=== PATIENT | male | born 1975 | race African-American/Black ===

== ENCOUNTER 2017-09-25 09:52 | Inpatient (IN) ==
--- NOTE | 2017-09-25 10:10 | ED ---
HPI General Chief Complaint: Stroke Alert Stated Complaint: Poss Stroke Time Seen by Provider: 09/25/17 09:58 Source: family Mode of arrival: ambulatory Limitations: altered mental status History of Present Illness HPI Narrative: The patient is a 42-year-old -[place] male who presents to the emergency department via private vehicle with EMS behind the private vehicle for stroke. The patient is a somewhat limited historian, the history is obtained from the . The patient's ex- states that she was having a discussion with the patient on the phone at 9:07 AM when all of a sudden he had "garbled" speech and appear to be talking to another individual. The patient's then went over to his location and noticed that he had a change of personality, was aggressive, and was not making sense when he would talk. EMS was called, however, the patient refused to get in the back of the EMS vehicle and they followed the patient's 's car to the emergency department. The patient was brought immediately to echo pod room 54 as a stroke alert. The patient was noted to be slightly confused, slightly aggressive, with repetitive questioning. The patient's states this behavior is totally abnormal. The patient eventually would follow some commands, was able to tell me fingers at a distance of 2 feet and would move all 4 extremities, however, he was unable to repeat phrases and appear to have some expressive aphasia. The patient is a limited historian. Time: 09:07 Related Data Allergies Allergy/AdvReac Type Severity Reaction Status Date / Time No Known Allergies Allergy Unverified 09/25/17 09:57 Review of Systems ROS Unobtainable unobtainable due to mental status Except as stated in HPI: all other systems reviewed are negative [facility] Medical History Medical History Patient denies medical problems (Acute) Surgical History Surgical History No history of previous surgery (Acute) Social History Social History Recent Travel in [facility] within the Last 8 Weeks: No Recent Out of Country Travel within the Last 8 Weeks: No Exam Narrative Exam Narrative: GENERAL: Awake, alert, slightly confused 42-year-old - [place] male. SKIN: Focused skin assessment warm/dry. HEAD: Atraumatic. Normocephalic. EYES: Pupils equal and round. Pupils are 4 mm bilateral and reactive. EOMs appear to be intact but he would not follow fingers, however, he would look to the left and right. He was able to tell me fingers at a distance of 2 feet correctly. ENT: No nasal bleeding or discharge. Mucous membranes pink and moist. NECK: Trachea midline. No JVD. CARDIOVASCULAR: Regular rate and rhythm. No murmur appreciated. RESPIRATORY: No accessory muscle use. Clear to auscultation. Breath sounds equal bilaterally. GASTROINTESTINAL: Abdomen soft, non-tender, nondistended. Hepatic and splenic margins not palpable. MUSCULOSKELETAL: No obvious deformities. No clubbing. No cyanosis. No edema. NEUROLOGICAL: Awake and alert. No obvious cranial nerve deficits. EOMs appear intact. He is able to see fingers at a distance of 2 feet without difficulty. Apparent expressive and receptive aphasia. Moves all 4 extremities without difficulty. Finger to nose is normal. Heel to ricketts normal. No drift of the upper or lower extremities. Sensation appears intact on the face, arms, and legs. Unable to identify my hand, simply states 5. PSYCHIATRIC: Unable to pain. Course Initial Documented Vital Signs Temperature 98.4 F 09/25/17 10:22 Pulse Rate 93 H 09/25/17 10:22 Respiratory Rate 22 09/25/17 10:22 Blood Pressure 153/68 H 09/25/17 10:22 Pulse Oximetry 99 09/25/17 10:22 Last Documented Vital Signs Temperature 98.4 F 09/25/17 10:22 Pulse Rate 93 H 09/25/17 10:22 Respiratory Rate 22 09/25/17 10:22 Blood Pressure 153/68 H 09/25/17 10:22 Pulse Oximetry 99 09/25/17 10:22 Critical Care Time Critical Care Time: Yes Total Critical Care Time: 45 Attestation: Aggregate critical care time was 45 minutes. Time to perform other separately billable procedures was not included in the critical care time. My time did not include minutes spent treating any other patients simultaneously or on activities that did not directly contribute to the patient's treatment. The services I provided to this patient were to treat and/or prevent clinically significant deterioration that could result in: Progressive neurologic deterioration, chronic neurologic deficits, aphasia, dysarthria. I provided critical care services requiring my management, as noted below: Chart data review, documentation time, medication orders and management, vital sign assessments/reviewing monitor data, ordering and reviewing lab tests, ordering and interpreting/reviewing x-rays and diagnostic studies, care of the patient and discussion of the patient with the admitting physicians. NIH Stroke Scale NIH Stroke Scale Level of Consciousness: 0-Alert Orientation Questions: 2-Neither task correct Responds to Commands: 2-Neither task correct Gaze Eye Movement: 0-Horizontal movement WNL Visual Berman: 0-No visual field defect Facial Movement: 0-Normal Motor Functions Arm LEFT: 0-No drift Motor Functions Arm RIGHT: 0-No drift Motor Functions Leg LEFT: 0-No drift Motor Functions Leg RIGHT: 0-No drift Limb Ataxia: 0-No ataxia Sensory Loss: 0-No sensory loss Best Language: 1-Mild aphasia Articulation: 1-Mild dysarthia Extinction or Inattention Sensory: 0-Absent Total: 6 Medical Decision Making MDM Narrative Medical decision making narrative: IV was established, labs are drawn and sent, and the patient was placed on cardiac telemetry monitoring and continuous pulse oximetry monitoring. Stroke alert was called as the patient appears to have some receptive and expressive aphasia with altered mental status. I discussed the patient with a neurologist, Dr. Neff, who agrees with TPA if CT the brain is negative. The patient went immediately to CT for CT the brain and CTA of the head and neck. The patient returned from CT, I discussed the patient with the radiologist, CT the brain is negative for hemorrhage. The patient came back to room echo pod 54. The patient is unable to identify objects on a piece of paper, cannot tell me what her glove or a holden is. He does not follow verbal commands correctly, but will follow visual commands such as finger to nose. Stroke scale is 6, onset at time was 9:07 AM. The patient is unable to consent for TPA, however, the patient's current is able to consent and does consent for TPA. 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 I discussed the patient with interventional radiologist, Dr. Chirinos, who states there appears to be a clot on the CTA of the head and neck. I discussed the patient once again with the neurologist who agrees with interventional radiology intervention if deemed possible by IR. The patient went to interventional radiology at 10:47 AM. A call was placed to the on-call commanding officer motorized squad for the intensive surgical care unit for admission. I discussed the patient with Dr. Rivera who agrees with admission. Lab Data Lab results reviewed: Yes I reviewed the patient's lab results. Lab results narrative: Labs are unremarkable Result diagrams: 09/25/17 10:03 Lab Results 09/25/17 09/25/17 09/25/17 Range/Units 10:03 10:03 10:03 WBC 10.6 (4.0-11.0) th/mm3 RBC 4.30 L (4.50-5.90) mil/mm3 Hgb 14.3 (13.0-17.0) gm/dL POC Hgb (Calc) 13.6 (13.0-17.0) g/dL Hct 41.9 (39.0-51.0) % POC Hct 40.0 (39-51.0) % MCV 97.6 (80.0-100.0) fL MCH 33.2 (27.0-34.0) pg MCHC 34.0 (32.0-36.0) % RDW 12.3 (11.6-17.2) % Plt Count 274 (150-450) th/mm3 MPV 9.6 (7.0-11.0) fL Neut % (Auto) 53.7 (16.0-70.0) % Lymph % (Auto) 39.1 (9.0-44.0) % [place] % (Auto) 5.8 (0.0-8.0) % Eos % (Auto) 1.0 (0.0-4.0) % Baso % (Auto) 0.4 (0.0-2.0) % Neut # (Auto) 5.7 (1.8-7.7) th/mm3 Lymph # (Auto) 4.1 (1.0-4.8) th/mm3 [place] # (Auto) 0.6 (0.0-0.9) th/mm3 Eos # (Auto) 0.1 (0.0-0.4) th/mm3 Baso # (Auto) 0.0 (0.0-0.2) th/mm3 WBC Differential . Differential Comment Auto diff final PT 11.2 (9.8-11.6) sec INR 1.1 Ratio APTT 27.1 (24.3-30.1) sec Fibrinogen 288 (227-377) mg/dL POC Sodium 142 (137-144) mmol/L POC Potassium 3.7 (3.6-5.0) mmol/L POC Chloride 106 (102-111) mmol/L POC BUN 12 (5-21) mg/dL POC Creatinine 1.2 (0.6-1.3) mg/dL POC Glucose 98 (68-110) mg/dL Imaging Data Radiologist's impression: Head CT 09/25/17 09:58 CONCLUSION: Unremarkable study. Head CTA 09/25/17 09:58 CONCLUSION: 1. 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 2. No aneurysmal disease. 3. Results were discussed with Dr. Meadows in the ED at the time of this dictation. ECG Data EKG Prior to Arrival: No Attestation: I personally reviewed and interpreted this ECG as follows: Interpretation: EKG reveals sinus rhythm with borderline first-degree AV block with MD interval of 212 ms. RSR prime in V1. Discharge Plan Discharge Disposition Patient Disposition: 30 Still Patient Discharge Condition Condition: Stable Discharge Details Diagnosis: Acute ischemic stroke Physicians Team ED Provider: Anuj Meadows Primary Care Provider: Kelsie Victoria Other Providers: Quinten Neff Status ED Status: Admitted Patient
--- NOTE | 2017-09-25 10:20 | CT ---
EXAM DATE: 09/25/2017 10:10 AM EDT AGE/SEX: 42 years / Male INDICATIONS: Stroke alert, confusion. CLINICAL DATA: This is the patient's initial encounter. Patient reports that signs and symptoms have been present for 1 day and indicates a pain score of Nonresponsive. MEDICAL/SURGICAL HISTORY: Non-responsive. Non-responsive. RADIATION DOSE: 44.07 CTDI (mGy) COMPARISON: No prior exams available for comparison. TECHNIQUE: CT of the head without contrast. Using automated exposure control and adjustment of the mA and/or kV according to patient size, radiation dose was kept as low as reasonably achievable to ob tain optimal diagnostic quality images. DICOM format image data is available electronically for revi ew and comparison. FINDINGS: There is no evidence for intracranial hemorrhage, mass effect, mass lesions, edema, or extra-axial fl uid collections. The visualized bony structures appear intact. The ventricles are normal size for t he patient's age. There are no signs of acute infarction for technique. Findings were discussed wit h Dr. Meadows at the time of this dictation on 09/25/2017 at 10:17 hours. CONCLUSION: Unremarkable study. Electronically signed by: Bibi Veliz MD 09/25/2017 10:19 AM EDT
[2017-09-25] MEDS ORDERED: Alteplase Drip 81 MG in Syringe/Bag 1 EACH IV.SIG ONE (10:25)
[2017-09-25] MEDS ORDERED: Alteplase Bolus 9 MG/9 ML Syringe IV.PUSH ONE (10:25)
[2017-09-25 10:35] LABS: Baso % (Auto) 0.4 % (0.0-2.0); Eos # (Auto) 0.1 th/mm3 (0.0-0.4); Hematocrit 41.9 % (39.0-51.0); Hemoglobin 14.3 gm/dL (13.0-17.0); Lymph # (Auto) 4.1 th/mm3 (1.0-4.8); Lymph % (Auto) 39.1 % (9.0-44.0); Mean Corpuscular Hemoglobin 33.2 pg (27.0-34.0); Mean Corpuscular Volume 97.6 fL (80.0-100.0); Mean Platelet Volume 9.6 fL (7.0-11.0); Mono # (Auto) 0.6 th/mm3 (0.0-0.9); Mono % (Auto) 5.8 % (0.0-8.0); Neut # (Auto) 5.7 th/mm3 (1.8-7.7); Neut % (Auto) 53.7 % (16.0-70.0); Platelet Count 274 th/mm3 (150-450); Red Cell Distribution Width 12.3 % (11.6-17.2); White Blood Count 10.6 th/mm3 (4.0-11.0)
[2017-09-25 10:38] LABS: Activated Partial Thrombo Time 27.1 sec (24.3-30.1); INR 1.1 Ratio; Prothrombin Time 11.2 sec (9.8-11.6)
[2017-09-25] MEDS: Sod Chloride 0.9% Inj 1,000 ML IV.CONT SCH (10:38)
--- NOTE | 2017-09-25 10:48 | CT ---
EXAM DATE: 09/25/2017 10:25 AM EDT AGE/SEX: 42 years / Male INDICATIONS: Stroke alert, confusion. CLINICAL DATA: This is the patient's initial encounter. Patient reports that signs and symptoms have been present for 1 day and indicates a pain score of Nonresponsive. MEDICAL/SURGICAL HISTORY: Non-responsive. Non-responsive. RADIATION DOSE: 28.91 CTDI (mGy) ; Combined studies COMPARISON: . TECHNIQUE: Volumetric scanning was performed using a multi-row detector CT scanner during bolus infu mikey of 50 ml Visipaque 320 (iodixanol) nonionic water-soluble contrast as a cumulative dose for mul tiple exams. The data was post processed with a variety of visualization algorithms including full volume maximum intensity projection, multi-planar sliding thin slab reformation, curved planar reform ation, and surface rendering techniques. Using automated exposure control and adjustment of the mA a nd/or kV according to patient size, radiation dose was kept as low as reasonably achievable to obtain optimal diagnostic quality images. DICOM format image data is available electronically for review a nd comparison. FINDINGS: There is excellent visualization of the major intracranial arteries out to the second-order branch ve ssels. Subtle area in the left temporal region showing paucity of vessels with suggestion of a branch vessel embolus near Broca's area. This would be concordant with the patient's presenting clinical sy mptoms of a receptive and expressive aphasia. CONCLUSION: 1. 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 2. No aneurysmal disease. 3. Results were discussed with Dr. Meadows in the ED at the time of this dictation. Electronically signed by: Parker Chirinos MD 09/25/2017 10:46 AM EDT
[2017-09-25] MEDS ORDERED: Bisacodyl 10 MG Supp RECTAL PRN (10:59)
[2017-09-25 11:01] LABS: Creatine Kinase 397 U/L (39-308)
[2017-09-25] MEDS ORDERED: niCARdipine Inj 25 MG in Sodium Chlor 0.9% Inj 240 ML IV.CONT PRN (11:02)
[2017-09-25 11:13] LABS: CKMB Percent 0.4 % (0.0-4.0); Creatine Kinase MB 1.6 ng/mL (0.5-3.6)
--- NOTE | 2017-09-25 11:28 | CT ---
EXAM DATE: 09/25/2017 10:45 AM EDT AGE/SEX: 42 years / Male INDICATIONS: Stroke alert, confusion. CLINICAL DATA: This is the patient's initial encounter. Patient reports that signs and symptoms have been present for 1 day and indicates a pain score of Nonresponsive. MEDICAL/SURGICAL HISTORY: Non-responsive. Non-responsive. RADIATION DOSE: 28.91 CTDI (mGy) ; Combined studies COMPARISON: No prior exams available for comparison. TECHNIQUE: Volumetric scanning was performed using a multirow detector CT scanner during bolus infus ion of 50 ml Visipaque 320 (iodixanol) nonionic water-soluble contrast as a cumulative dose for mult iple exams. The data was postprocessed with a variety of visualization algorithms including full-vo lume maximum intensity projection, multiplanar sliding thin-slab reformation, curved-planar reformati on, and surface-rendering techniques. Using automated exposure control and adjustment of the mA and/ or kV according to patient size, radiation dose was kept as low as reasonably achievable to obtain op timal diagnostic quality images. DICOM format image data is available electronically for review and comparison. Elevated flow velocities and ICA/CCA ratios have been found to correlate with increased degrees of ve ssel stenosis, calculated as percentage of diameter relative to a normal segment of distal ICA/CCA. FINDINGS: Aortic Arch: There is a bovine arch. Arch vessels are all patent with no significant atherosclerotic plaquing. Right Carotid: Right carotid system is widely patent throughout. Incidental note is made of a branch vessel of the external actually emanating from the proximal internal, just distal to the bifurcation . Left Carotid: Left carotid system is widely patent throughout with no significant atherosclerotic pl aquing. Vertebrals: Vertebral system is patent throughout CONCLUSION: Cervical and arch vessels are widely patent with no significant atherosclerotic plaquing. Electronically signed by: Parker Chirinos MD 09/25/2017 11:27 AM EDT
[2017-09-25] MEDS ORDERED: Succinylcholine Inj 100 MG/5 ML Syringe IV.PUSH ONE (12:00)
[2017-09-25] MEDS ORDERED: Phenylephrine/NS 1000 MCG/10ML Syringe IV.PUSH ONE (12:00)
--- NOTE | 2017-09-25 12:18 | P.HPCC ---
History of Present Illness Primary Care Physician: eKlsie Victoria MD History of Present Illness: The patient is a 42-year-old -[place] male who presents to the emergency department via private vehicle probable for stroke. Apparently patient's ex- was having a discussion with the patient on the phone at 9:07 AM when suddenly he developed garbled and incoherent speech. She went over to his pace and noticed that he had a change of personality, was aggressive with expressive and receptive aphasia. Patient was brought to the ED as stroke alert. In the ED patient was slightly confused and aggressive with expressive, and receptive aphasia. Ed attending discussed with Dr. Neff, brian patient immediately went for. CT/CTA of the head. There was no hemorrhage and patient received systemic TPA per protocol. Due to increasing agitation and to facilitate further imaging studies and for possible interventional radiology intervention patient was intubated and placed on mechanical ventilation. 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 Postintubation patient was taken to the IR for possible clot extraction, however it however with angiogram clot appears to have resolved after TPA. I evaluated the patient in the ICU. He is currently intubated sedated and neuromuscularly paralyzed for ventilator synchrony and to facilitate angiogram. Neuro exam is limited due to neuromuscular paralysis however pupils are equal and reactive - Diagnosis (1) Acute ischemic left middle cerebral artery (MCA) stroke (2) Broca's aphasia (3) Acute respiratory failure Inpatient Certification: I certify that the inpatient services were ordered in accordance with Medicare regulations governing the order. This includes certification that hospital inpatient services are reasonable and necessary and in the case of services not specified as inpatient-only under 42 CFR 419.22(n), that they are appropriately provided as inpatient services in accordance to with the 2-midnight benchmark under 43 CFR 412.3(e) Estimated Total Length of Stay (Days): 3 Plans for Post Hospital Care: Hospice Review of Systems unobtainable due to endotracheal tube PMFSH - History History Provided By: Significant Other - Medical / Surgical Hx Neg / Unobtainable Medical Problems Denied: Unable to Obtain - Medical History Medical History: Medical History (Last Reviewed 09/25/17 @ 11:14 by Noelle Cross, YUAN) Patient denies medical problems - Surgical History Surgical History: Surgical History (Last Updated 09/25/17 @ 10:25 by Alexus Diaz) No history of previous surgery - Tobacco History Smoking Status: Unknown if ever smoked - Alcohol History How Often Do You Have a Drink Containing Alcohol: Unable to Obtain - Substance Use History Substance History: Unable to Obtain - Travel History Recent Travel in the [place] Within the Last 8 Weeks: No Recent Travel Out of the Country Within the Last 8 Weeks: No - Immunization History Tetanus Immunization: Unable to Assess Hx Influenza Vaccine This Season: Unable to Assess Medications and Allergies Active Medications: Active Medications Acetaminophen (Tylenol) 650 mg PO Q6H PRN PRN Reason: PAIN 1-10 AND/OR FEVER >101F Al Hydroxide/Mg Hydroxide (Milk Of Magnesia Liq) 30 ml PO Q12H PRN PRN Reason: Mild Constipation Albuterol (Albuterol Neb (Prn)) 2.5 mg NEB Q2HR NEB PRN PRN Reason: SHORTNESS OF BREATH/WHEEZING Bisacodyl (Dulcolax Supp) 10 mg RECTAL DAILY PRN PRN Reason: SEVERE CONSITIPATION Chlorhexidine Gluconate (Chlorhexidine 2% Cloth) 3 pack TOPICAL DAILY@0400 MARGA Stop: 10/01/17 03:59 Chlorhexidine Gluconate (Chlorhexidine 2% Cloth) 3 pack TOPICAL DAILY@0400 PRN PRN Reason: Extra cloth needed Stop: 10/01/17 03:59 Chlorhexidine Gluconate (Peridex 0.12% Oral Kit) 15 ml OROPHARYNG BID@0800, 2000 [facility] Famotidine (Pepcid Pf Inj) 20 mg IV.PUSH Q12HR [facility] Sodium Chloride (Ns Inj) 1,000 mls @ 70 mls/hr IV.CONT .[id number] [facility] Last Admin: 09/25/17 10:38 Dose: 70 mls/hr Nicardipine HCl 25 mg/ Sodium (Chloride) 250 mls @ 50 mls/hr IV.CONT TITRATE PRN; Protocol PRN Reason: Per Protocol Propofol (Diprivan 1000 Mg/100 Ml Inj) 1,000 mg in 100 mls @ 3.39 mls/hr IV.CONT TITRATE PRN; Protocol PRN Reason: Per Protocol Lactulose (Lactulose Liq) 30 ml PO DAILY PRN PRN Reason: SEVERE CONSITIPATION Ondansetron HCl (Zofran Odt) 4 mg PO Q6H PRN PRN Reason: NAUSEA OR VOMITING Senna/Docusate Sodium (Radha-Colace) 1 tab PO BID [facility] Sennosides (Senokot) 17.2 mg PO Q12H PRN PRN Reason: Moderate Constipation Sodium Chloride (Ns Flush) 2 ml IV.FLUSH BID MARGA Sodium Chloride (Ns Flush) 2 ml IV.FLUSH UNSCH PRN PRN Reason: FLUSH AFTER USING IV ACCESS Allergies Allergy/AdvReac Type Severity Reaction Status Date / Time No Known Allergies Allergy Unverified 09/25/17 09:57 Home Medications Medication Instructions Recorded Confirmed Type No Known Home Medications 09/25/17 09/25/17 History Results - Labs CBC & Chem 7: 09/25/17 10:03 Labs: Short CBC 09/25/17 Range/Units 10:03 WBC 10.6 (4.0-11.0) th/mm3 Hgb 14.3 (13.0-17.0) gm/dL Hct 41.9 (39.0-51.0) % Plt Count 274 (150-450) th/mm3 Cardiac Enzymes 09/25/17 Range/Units 10:03 Total Creatine Kinase 397 H (39-308) U/L CK-MB (CK-2) 1.6 (0.5-3.6) ng/mL Troponin I Less than 0.02 L (0.02-0.05) ng/mL - Imaging Impressions Head CT 09/25/17 09:58 CONCLUSION: Unremarkable study. Head CTA 09/25/17 09:58 CONCLUSION: 1. 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 2. No aneurysmal disease. 3. Results were discussed with Dr. Meadows in the ED at the time of this dictation. Neck CTA 09/25/17 09:58 CONCLUSION: Cervical and arch vessels are widely patent with no significant atherosclerotic plaquing. Exam Vital signs: Vital Signs 09/25/17 09:55 09/25/17 10:05 09/25/17 10:22 Temperature 98.4 F 98.4 F Pulse Rate 92 H 93 H Respiratory Rate 16 22 Blood Pressure 144/73 H 153/68 H Pulse Oximetry 99 100 99 Intake & Output 09/24/17 09/25/17 09/25/17 18:59 06:59 18:59 Weight 113 kg Narrative: GENERAL: Patient currently sedated and neuromuscularly paralyzed limiting exam SKIN: Warm/dry. HEAD: Atraumatic. Normocephalic. EYES: Pupils equal and round. Pupils are 4 mm bilateral and reactive. ENT: No nasal bleeding or discharge. Mucous membranes pink and moist. NECK: Trachea midline. No JVD. CARDIOVASCULAR: Regular rate and rhythm. No murmur appreciated. RESPIRATORY: No accessory muscle use. Clear to auscultation. Breath sounds equal bilaterally. On PRVC GASTROINTESTINAL: Abdomen soft, nondistended. Hepatic and splenic margins not palpable. MUSCULOSKELETAL: No obvious deformities. NEUROLOGICAL: Patient is neuromuscularly paralyzed now unable to do neuro exam Septic Shock Reassessment Septic shock perfusion: reassessment completed Caprini VTE Risk Assessment Caprini VTE Risk Assessment: Moderate/High Risk (score >= 2) Caprini Risk Assessment Model: Point Value = 1 Point Value = 2 Point Value = 3 Point Value = 5 Age 41-60 Minor surgery BMI > 25 kg/m2 Swollen legs Varicose veins or History of unexplained or recurrent spontaneous Oral contraceptives or hormone replacement Sepsis (< 1 month) Serious lung disease, including pneumonia (< 1 month) Abnormal pulmonary function Acute myocardial infarction Congestive heart failure (< 1 month) History of inflammatory bowel disease Medical patient at bed rest Age 61-74 Arthroscopic surgery Major open surgery (> 45 min) Laparoscopic surgery (> 45 min) Malignancy Confined to bed (> 72 hours) Immobilizing plaster cast Central venous access Age >= 75 History of VTE Family history of VTE Factor V Leiden Prothrombin [id number] Lupus anticoagulant Anticardiolipin antibodies Elevated serum homocysteine Heparin-induced thrombocytopenia Other congenital or acquired thrombophilia Stroke (< 1 month) Elective arthroplasty Hip, pelvis, or leg fracture Acute spinal cord injury (< 1 month) Prophylaxis Regimen: Total Risk Factor Score Risk Level Prophylaxis Regimen 0-1 Low Early ambulation 2 Moderate Order ONE of the following: *Sequential Compression Device (SCD) *Heparin 5000 units SQ BID 3-4 Higher Order ONE of the following medications: *Heparin 5000 units SQ TID *Enoxaparin/Lovenox 40 mg SQ daily (WT < 150 kg, CrCl > 30 mL/min) *Enoxaparin/Lovenox 30 mg SQ daily (WT < 150 kg, CrCl > 10-29 mL/min) *Enoxaparin/Lovenox 30 mg SQ BID (WT < 150 kg, CrCl > 30 mL/min) AND/OR *Sequential Compression Device (SCD) 5 or more Highest Order ONE of the following medications: *Heparin 5000 units SQ TID (Preferred with Epidurals) *Enoxaparin/Lovenox 40 mg SQ daily (WT < 150 kg, CrCl > 30 mL/min) *Enoxaparin/Lovenox 30 mg SQ daily (WT < 150 kg, CrCl > 10-29 mL/min) *Enoxaparin/Lovenox 30 mg SQ BID (WT < 150 kg, CrCl > 30 mL/min) AND *Sequential Compression Device (SCD) Assessment and Plan - Problem List (1) Acute ischemic left middle cerebral artery (MCA) stroke Code(s): I63.512 - Cerebral infarction due to unspecified occlusion or stenosis of left middle cerebral artery Status: Acute (2) Broca's aphasia Code(s): R47.01 - Aphasia Status: Acute (3) Acute respiratory failure Code(s): J96.00 - Acute respiratory failure, unspecified whether with hypoxia or hypercapnia Status: Acute - Assessment and Plan Plan: NEURO: Acute left MCA stroke Embolus to the Broca's area with expressive and receptive aphasia Agitated delirium -Propofol and Versed for sedation and ventilator synchrony -Status post IV TPA, follow post TPA protocol -Start aspirin after 24 hours -CT head in 24 hours -Further workup with lipid profile, TSH, B12, 2D echo -CT angiogram of the neck did not show any hemodynamically significant occlusion -CT of brain showed embolus to the Broca's area -PT OT speech eval after extubation RESP: Acute respiratory failure -PRVC/AC, Ventilator bundle -DuoNeb every 6 hours scheduled and as needed -SBT when appropriate, hopefully in the next 24 hours CV: -Normal saline IV fluids, 2d echo -Target systolic blood pressure less than 185/105 -Use labetalol as needed -Start Lipitor 40 mg daily GI: Obesity -N.p.o., IV famotidine : -Monitor renal function closely. Ruano catheter. ID: -Watch closely for infection, no antibiotics indicated at this time -Blood urine and sputum cultures HEME: -Monitor CBC, coags, fibrinogen ENDO: -Electrolyte replacement per protocol PROPH: -Bilateral lower extremity SCDs. IV Famotidine. No chemical DVT prophylaxis 24 hours post TPA LINES: -Utilize peripheral IVs, central line if needed CC time 45 min Code Status: Full
[2017-09-25] MEDS ORDERED: Propofol Inj 500 MG/50 ML Vial ONE ×2 (12:24→12:48)
[2017-09-25] MEDS: Propofol 1000 mg/100 ml Inj 1,000 MG/100 ML BOTTLE IV.CONT PRN ×5 (13:11→22:51)
[2017-09-25] MEDS: Midazolam 50 MG/50 ML Inj 50 MG/50 ML BAG IV.CONT PRN ×2 (13:13→19:29)
[2017-09-25] MEDS ORDERED: Phenylephrine Inj 40 MG in Dextrose 5% in Water Inj 496 ML IV.CONT PRN ×2 (13:19)
[2017-09-25 13:20] LABS: ABG Base Excess 0.8 mmol/L (-2-2); ABG PCO2 36 mmHg (38-42); ABG PO2 183 mmHg (61-120)
--- NOTE | 2017-09-25 13:20 | IR ---
EXAM DATE: 09/25/2017 12:32 PM EDT AGE/SEX: 42 years / Male INDICATIONS: Patient presents with altered mental status in need of cerebral angiogram to evaluate f or possible stroke with intervention if needed. CLINICAL DATA: This is the patient's initial encounter. Patient reports that signs and symptoms have been present for 1 day and indicates a pain score of 0/10. MEDICAL/SURGICAL HISTORY: . Unable to obtain due to mental status. . Unable to obtain due to m ental status. COMPARISON: No prior exams available for comparison. FLUORO TIME (min): 2.3 IMAGE SERIES: 8 ACCESS SITE: Right femoral artery CONTRAST (cc): 40 Visipaque (iodixanol) Anesthesia and pain control was provided by the Anesthesia department. DEVICE(S): . . TIMELINE: Interventional Team Called: 1047 Interventional Team Arrived: 1047 Interventional Team Ready 1054 Patient Arrival: 1054 Groin Puncture: [phone] Recanalization: PROCEDURE : 1. Ultrasound-guided puncture of the right common femoral artery access site. 2. Selective catheterization, left internal carotid artery. 3. Conscious sedation with continuous EKG and Oximetry monitoring. 4. Left internal carotid artery cerebral arteriography. The risks, benefits and alternatives to the procedure were explained and verbal and written consent w as obtained. The site was prepped in sterile fashion. Full sterile technique was used, including cap, mask, sterile gloves and gown and a large sterile sheet. Hand hygiene and 2% chlorhexidine and/or be tadine/alcohol prep was utilized per protocol for cutaneous antisepsis. The skin and subcutaneous tis sues were infiltrated with local anesthetic solution. Sterile gel and sterile probe cover were utili zed for ultrasound guidance. With ultrasound and fluoroscopic guidance the selected artery was punctured and a 4 [place] vascular s rosa was placed. A 4 [place] JB2 catheter was introduced and used to select the left internal carotid artery. Left smiley tid cerebral arteriography was then performed in multiple projections. The catheter and sheath were removed and hemostasis was achieved at the right groin with direct press ure. The patient tolerated the procedure well. Anesthesia Department representatives were present throughout for monitoring and general anesthesia. FINDINGS: The left carotid cerebral circulation is intact and unremarkable with no definite evidence of vessel occlusion or stenosis. No aneurysm or vascular malformation is identified. Parenchymal perf usion appears intact and unremarkable. CONCLUSION: Unremarkable cerebral arteriography with no evidence of visible vessel occlusion to be targeted for c atheter directed stroke therapy Electronically signed by: Kenneth Elder MD 09/25/2017 1:19 PM EDT
[2017-09-25 13:30] LABS: Bilirubin,Urine Negative (Negative); Clarity,Urine Clear (Clear); Color,Urine Straw (Yellw/Straw); Glucose,Urine (UA) Negative (Negative); Leukocyte Esterase,Urine Negative (Negative); Mucus,Urine Few /lpf (Occasional); Nitrite,Urine Negative (Negative); Specific Gravity,Urine 1.024 (1.002-1.035); Squamous Epithelial Cell,Urine <1 /hpf (0-5)
[2017-09-25 13:33] LABS: Amphetamine Screen,Urine Neg (Neg); Barbiturate Screen,Urine Neg (Neg); Cannabinoid Screen,Urine Neg (Neg); Cocaine Screen,Urine Neg (Neg); Opiate Screen,Urine Neg (Neg)
[2017-09-25 13:58] LABS: Thyroid Stimulating Hormone 1.59 uIU/mL (0.358-3.740)
[2017-09-25] MEDS: DOPamine 800 MG/500 ML Premix 800 MG/500 ML PLAST..BAG IV.CONT PRN (15:45)
[2017-09-25] MEDS: Oral Hygiene Kit OROPHARYNG SCH (17:46)
--- NOTE | 2017-09-25 18:35 | ECHRPT ---
Indication: CVA/TIA CONCLUSIONS The left ventricular systolic function is low normal with an estimated ejection fraction in the rang e of 50- 55%. Mild concentric left ventricular hypertrophy. No atrial level shunt is demonstrated by color flow Doppler interrogation. Possible mild anterior leaflet prolapse Mild mitral valve regurgitation. There is mild tricuspid valve regurgitation. BP: / HR: Rhythm: Sinus MEASUREMENTS (Male / Female) Normal Values Technical Quality:Fair 2D ECHO LV Diastolic Diameter PLAX 5.7 cm 4.2 - 5.9 / 3.9 - 5.3 cm LV Systolic Diameter PLAX 4.4 cm IVS Diastolic Thickness 1.1 cm 0.6 - 1.0 / 0.6 - 0.9 cm LVPW Diastolic Thickness 1.1 cm 0.6 - 1.0 / 0.6 - 0.9 cm LV Relative Wall Thickness 0.4 RV Internal Dim ED PLAX 2.9 cm LVOT Diameter 2.0 cm Aortic Root Diameter 3.2 cm LA Systolic Diameter LX 4.6 cm 3.0 - 4.0 / 2.7 - 3.8 cm M-MODE AV Cusp Separation MM 2.2 cm DOPPLER AV Peak Velocity 85.1 cm/s AV Peak Gradient 2.9 mmHg AV Mean Gradient 2.0 mmHg AV Velocity Time Integral 18.4 cm LVOT Peak Velocity 52.6 cm/s LVOT Peak Gradient 1.1 mmHg LVOT Velocity Time Integral 10.8 cm AV Area Cont Eq vti 1.8 cm AV Area Cont Eq pk 1.9 cm Mitral E Point Velocity 81.4 cm/s Mitral A Point Velocity 17.3 cm/s Mitral E to A Ratio 4.7 LV E' Lateral Velocity 11.2 cm/s Mitral E to LV E' Lateral Ratio 7.3 LV E' Septal Velocity 8.9 cm/s Mitral E to LV E' Septal Ratio 9.2 TR Peak Velocity 269.0 cm/s TR Peak Gradient 28.9 mmHg Right Atrial Pressure 10.0 mmHg Pulmonary Artery Systolic Pressu 38.9 mmHg Right Ventricular Systolic Press 38.9 mmHg PV Peak Velocity 32.3 cm/s PV Peak Gradient 0.4 mmHg FINDINGS LEFT VENTRICLE Normal left ventricular size. Mild concentric left ventricular hypertrophy. The left ventricular systolic function is low normal with an estimated ejection fraction in the rang e of 50- 55%. RIGHT VENTRICLE Normal right ventricular size and systolic function. LEFT ATRIUM The left atrial size is mildly dilated. RIGHT ATRIUM The right atrial size is mildly dilated. ATRIAL SEPTUM No atrial level shunt is demonstrated by color flow Doppler interrogation. AORTA The aortic root and proximal ascending aorta are normal in size on limited imaging. MITRAL VALVE Possible mild anterior leaflet prolapse Mild mitral valve regurgitation. The mitral valve regurgitation jet is directed posteriorly. AORTIC VALVE Trileaflet aortic valve. No aortic valve stenosis or regurgitation. TRICUSPID VALVE Structurally normal tricuspid valve. There is mild tricuspid valve regurgitation. The estimated pulmonary arterial pressure is 38.9 mmHg. PULMONARY VALVE No pulmonary valve regurgitation or stenosis. VESSELS The inferior vena cava is normal in size. PERICARDIUM No pericardial effusion. Karri Moreira DO (Electronically Signed) Final Date:25 September 2017 18:35
--- NOTE | 2017-09-25 18:47 | P.CONNEU ---
History of Present Illness Service: neurology Primary Care Provider: Kelsie Victoria MD History of Present Illness: 42-year-old -Greek male who presents to the emergency department via private vehicle probable for stroke. Apparently patient's ex- was having a discussion with the patient on the phone at 9:07 AM when suddenly he developed garbled and incoherent speech. acute change in personality. She got admitted for emergent evaluation for potential stroke. Consented for thrombolytic therapy. iv tpa d/w and pt was given tx based on acute focal neuro change. thereafter cta's showed mca occlusion, went for to IR. no intervention performed. for airway protection was intubated and sent to icu. Review of Systems All other systems reviewed negative except as stated in HPI PMFSH - History History Provided By: Significant Other - Medical / Surgical Hx Neg / Unobtainable Medical Problems Denied: Unable to Obtain - Medical History Medical History: Medical History (Last Updated 09/26/17 @ 07:46 by Anayeli Edwards RN) Patient denies medical problems (Acute) - Surgical History Surgical History: Surgical History (Last Updated 09/26/17 @ 07:46 by Anayeli Edwards RN) No history of previous surgery (Acute) - Tobacco History Smoking Status: Unknown if ever smoked - Alcohol History How Often Do You Have a Drink Containing Alcohol: Unable to Obtain - Substance Use History Substance History: Unable to Obtain - Travel History Recent Travel in the [place] Within the Last 8 Weeks: No Recent Travel Out of the Country Within the Last 8 Weeks: No - Immunization History Tetanus Immunization: Unable to Assess Hx Influenza Vaccine This Season: Unable to Assess Medications and Allergies Active Medications: Active Medications Acetaminophen (Tylenol) 650 mg PO Q6H PRN PRN Reason: PAIN 1-10 AND/OR FEVER >101F Al Hydroxide/Mg Hydroxide (Milk Of Magnesia Liq) 30 ml PO Q12H PRN PRN Reason: Mild Constipation Albuterol (Albuterol Neb (Prn)) 2.5 mg NEB Q2HR NEB PRN PRN Reason: SHORTNESS OF BREATH/WHEEZING Atorvastatin Calcium (Lipitor) 40 mg PO HS MARGA Bisacodyl (Dulcolax Supp) 10 mg RECTAL DAILY PRN PRN Reason: SEVERE CONSITIPATION Chlorhexidine Gluconate (Chlorhexidine 2% Cloth) 3 pack TOPICAL DAILY@0400 [facility] Stop: 10/01/17 03:59 Chlorhexidine Gluconate (Chlorhexidine 2% Cloth) 3 pack TOPICAL DAILY@0400 PRN PRN Reason: Extra cloth needed Stop: 10/01/17 03:59 Chlorhexidine Gluconate (Peridex 0.12% Oral Kit) 15 ml OROPHARYNG BID@0800, 2000 MARGA Famotidine (Pepcid Pf Inj) 20 mg IV.PUSH Q12HR MARGA Sodium Chloride (Ns Inj) 1,000 mls @ 70 mls/hr IV.CONT .[id number] MARGA Last Admin: 09/25/17 10:38 Dose: 70 mls/hr Nicardipine HCl 25 mg/ Sodium (Chloride) 250 mls @ 50 mls/hr IV.CONT TITRATE PRN; Protocol PRN Reason: Per Protocol Propofol (Diprivan 1000 Mg/100 Ml Inj) 1,000 mg in 100 mls @ 3.39 mls/hr IV.CONT TITRATE PRN; Protocol PRN Reason: Per Protocol Last Admin: 09/25/17 17:46 Dose: 75 mcg/kg/min, 50.85 mls/hr Midazolam HCl (Versed Inj) 50 mg in 50 mls @ 2 mls/hr IV.CONT TITRATE PRN; Protocol PRN Reason: Per Protocol Last Admin: 09/25/17 13:13 Dose: 2 mg/hr, 2 mls/hr Phenylephrine HCl 40 mg/ (Dextrose) 500 mls @ 30 mls/hr IV.CONT TITRATE PRN; Protocol PRN Reason: Per Protocol Last Titration: 09/25/17 15:45 Dose: 0 mcg/min, 0 mls/hr Dopamine HCl/Dextrose (Dopamine 800 Mg/500 Ml Premix) 800 mg in 500 mls @ 13.061 mls/hr IV.CONT TITRATE PRN; Protocol PRN Reason: Per Protocol Last Titration: 09/25/17 16:00 Dose: 5 mcg/kg/min, 21.77 mls/hr Lactulose (Lactulose Liq) 30 ml PO DAILY PRN PRN Reason: SEVERE CONSITIPATION Midazolam HCl (Versed Inj) 5 mg IV.PUSH Q3H PRN PRN Reason: AGITATION Last Admin: 09/25/17 17:47 Dose: 5 mg Ondansetron HCl (Zofran Odt) 4 mg PO Q6H PRN PRN Reason: NAUSEA OR VOMITING Senna/Docusate Sodium (Radha-Colace) 1 tab PO BID MARGA Sennosides (Senokot) 17.2 mg PO Q12H PRN PRN Reason: Moderate Constipation Sodium Chloride (Ns Flush) 2 ml IV.FLUSH BID MARGA Sodium Chloride (Ns Flush) 2 ml IV.FLUSH UNSCH PRN PRN Reason: FLUSH AFTER USING IV ACCESS Terbutaline Sulfate (Brethine Inj) 1 mg SQ UNSCH PRN PRN Reason: For Extravasation Terbutaline Sulfate (Brethine Inj) 1 mg SQ ONCE PRN PRN Reason: Extravasation Allergies Allergy/AdvReac Type Severity Reaction Status Date / Time No Known Allergies Allergy Unverified 09/25/17 09:57 Home Medications Medication Instructions Recorded Confirmed Type No Known Home Medications 09/25/17 09/25/17 History Exam Vital signs: Vital Signs 09/25/17 09:55 09/25/17 10:05 09/25/17 10:22 Temperature 98.4 F 98.4 F Pulse Rate 92 H 93 H Respiratory Rate 16 22 Blood Pressure 144/73 H 153/68 H Pulse Oximetry 99 100 99 09/25/17 12:23 09/25/17 12:30 09/25/17 15:38 Temperature 98.9 F Pulse Rate 70 Respiratory Rate 16 14 14 Blood Pressure 123/70 Pulse Oximetry 100 100 09/25/17 16:00 Temperature 98.3 F Pulse Rate 61 Respiratory Rate 14 Blood Pressure 169/79 H Pulse Oximetry 100 Intake & Output 09/24/17 09/25/17 09/25/17 18:59 06:59 18:59 Intake Total 150 / 150 Balance 150 / 150 Weight 116.1 kg Intake: IV 150 / 150 Diprivan 1000 mg/100 ml Inj 1, 150 / 150 000 mg In 100 ml @ 5 MCG/KG/MIN 3.39 mls/hr IV.CONT TITRATE PRN Rx#:[id number] - Constitutional no acute distress - Routine HEENT Exam Head: Present: normocephalic - Routine Neck Exam Present: supple - Routine Cardiovascular Exam Present: RRR - Routine Abdominal Exam Present: soft, normoactive bowel sounds - Routine Neurological Exam intubated, on sedation limited exam Results - Labs CBC & Chem 7: 09/26/17 05:20 09/26/17 05:20 Labs: Laboratory Results - last 24 hr 09/25/17 09/25/17 09/25/17 10:01 10:03 10:03 WBC 10.6 RBC 4.30 L Hgb 14.3 POC Hgb (Calc) Hct 41.9 POC Hct MCV 97.6 MCH 33.2 MCHC 34.0 RDW 12.3 Plt Count 274 MPV 9.6 Neut % (Auto) 53.7 Lymph % (Auto) 39.1 [place] % (Auto) 5.8 Eos % (Auto) 1.0 Baso % (Auto) 0.4 Neut # (Auto) 5.7 Lymph # (Auto) 4.1 [place] # (Auto) 0.6 Eos # (Auto) 0.1 Baso # (Auto) 0.0 WBC Differential . Differential Comment Auto diff final PT 11.2 INR 1.1 APTT 27.1 Fibrinogen 288 Puncture Site Patient Temperature O2 Saturation ABG pH ABG pCO2 ABG pO2 ABG HCO3 ABG O2 Content ABG Base Excess ABG Methemoglobin Hemoglobin Carboxyhemoglobin O2 Delivery Device Vent Setting Inspired O2 Critical Value POC Sodium POC Potassium POC Chloride POC BUN POC Creatinine POC Glucose Total Creatine Kinase CK-MB (CK-2) CK-MB (CK-2) % Troponin I Vitamin B12 480 TSH 1.590 Urine Color Urine Clarity Urine pH Ur Specific [place] Urine Protein Urine Glucose (UA) Urine Ketones Urine Occult Blood Urine Nitrate Urine Bilirubin Urine Urobilinogen Ur Leukocyte Esterase Urine RBC Ur Squamous Epith Cells Urine Mucus Micro UA Comment Urine Culture Comments Urine Opiates Screen Ur Barbiturates Screen Ur Amphetamines Screen U Benzodiazepines Scrn Urine Cocaine Screen U Cannabinoids Screen Blood Type Blood Type Recheck Antibody Screen 09/25/17 09/25/17 09/25/17 10:03 12:00 12:35 WBC RBC Hgb POC Hgb (Calc) 13.6 Hct POC Hct 40.0 MCV MCH MCHC RDW Plt Count MPV Neut % (Auto) Lymph % (Auto) [place] % (Auto) Eos % (Auto) Baso % (Auto) Neut # (Auto) Lymph # (Auto) [place] # (Auto) Eos # (Auto) Baso # (Auto) WBC Differential Differential Comment PT INR APTT Fibrinogen Puncture Site Patient Temperature O2 Saturation ABG pH ABG pCO2 ABG pO2 ABG HCO3 ABG O2 Content ABG Base Excess ABG Methemoglobin Hemoglobin Carboxyhemoglobin O2 Delivery Device Vent Setting Inspired O2 Critical Value POC Sodium 142 POC Potassium 3.7 POC Chloride 106 POC BUN 12 POC Creatinine 1.2 POC Glucose 98 Total Creatine Kinase 397 H CK-MB (CK-2) 1.6 CK-MB (CK-2) % 0.4 Troponin I Less than 0.02 L Vitamin B12 TSH Urine Color Straw Urine Clarity Clear Urine pH 6.0 Ur Specific [place] 1.024 Urine Protein Negative Urine Glucose (UA) Negative Urine Ketones Negative Urine Occult Blood Negative Urine Nitrate Negative Urine Bilirubin Negative Urine Urobilinogen Less than 2 Ur Leukocyte Esterase Negative Urine RBC 3 Ur Squamous Epith Cells <1 Urine Mucus Few H Micro UA Comment Cath-culture not ind Urine Culture Comments Cath-cult not ind Urine Opiates Screen Neg Ur Barbiturates Screen Neg Ur Amphetamines Screen Neg U Benzodiazepines Scrn Neg Urine Cocaine Screen Neg U Cannabinoids Screen Neg Blood Type Blood Type Recheck Antibody Screen 09/25/17 09/25/17 13:13 14:07 WBC RBC Hgb POC Hgb (Calc) Hct POC Hct MCV MCH MCHC RDW Plt Count MPV Neut % (Auto) Lymph % (Auto) [place] % (Auto) Eos % (Auto) Baso % (Auto) Neut # (Auto) Lymph # (Auto) [place] # (Auto) Eos # (Auto) Baso # (Auto) WBC Differential Differential Comment PT INR APTT Fibrinogen Puncture Site Art line Patient Temperature 98.6 O2 Saturation 97 ABG pH 7.45 H ABG pCO2 36 L ABG pO2 183 H ABG HCO3 24 ABG O2 Content 17.3 ABG Base Excess 0.8 ABG Methemoglobin 1.2 Hemoglobin 12.4 Carboxyhemoglobin 1.5 O2 Delivery Device Ventilator Vent Setting Prvc/ac Inspired O2 50 Critical Value No POC Sodium POC Potassium POC Chloride POC BUN POC Creatinine POC Glucose Total Creatine Kinase CK-MB (CK-2) CK-MB (CK-2) % Troponin I Vitamin B12 TSH Urine Color Urine Clarity Urine pH Ur Specific [place] Urine Protein Urine Glucose (UA) Urine Ketones Urine Occult Blood Urine Nitrate Urine Bilirubin Urine Urobilinogen Ur Leukocyte Esterase Urine RBC Ur Squamous Epith Cells Urine Mucus Micro UA Comment Urine Culture Comments Urine Opiates Screen Ur Barbiturates Screen Ur Amphetamines Screen U Benzodiazepines Scrn Urine Cocaine Screen U Cannabinoids Screen Blood Type AB Positive Blood Type Recheck Required Antibody Screen Negative - Imaging Impressions Cerebral Angiography 09/25/17 00:00 CONCLUSION: Unremarkable cerebral arteriography with no evidence of visible vessel occlusion to be targeted for catheter directed stroke therapy Head CT 09/25/17 09:58 CONCLUSION: Unremarkable study. Head CTA 09/25/17 09:58 CONCLUSION: 1. 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 2. No aneurysmal disease. 3. Results were discussed with Dr. Meadows in the ED at the time of this dictation. Neck CTA 09/25/17 09:58 CONCLUSION: Cervical and arch vessels are widely patent with no significant atherosclerotic plaquing. Review/Management - Diagnosis (1) Acute ischemic stroke Code(s): I63.9 - Cerebral infarction, unspecified Status: Acute Current Visit: Yes (2) Acute ischemic left middle cerebral artery (MCA) stroke Code(s): I63.512 - Cerebral infarction due to unspecified occlusion or stenosis of left middle cerebral artery Status: Acute Current Visit: Yes (3) Broca's aphasia Code(s): R47.01 - Aphasia Status: Acute Current Visit: Yes (4) Acute respiratory failure Code(s): J96.00 - Acute respiratory failure, unspecified whether with hypoxia or hypercapnia Status: Acute Current Visit: Yes - Review/Management Plan: left mca stroke suspected s/p iv tpa etiology? recs post-tpa order set cardiology eval once stabilized for jorden consideration and possible loop heme eval for hypercoag state scd no blood thinners x 24 hrs bp <180/100 at all times follow exam appreciate CCM
--- NOTE | 2017-09-25 19:00 | ECG ---
Date Performed: 09/25/2017 Time Performed: 10:29:28 PTAGE: 42 years EKG: Sinus rhythm WITH FIRST DEGREE AV BLOCK POSSIBLE LEFT ATRIAL ENLARGEMENT POSSIBLE RIGHT VENTRICULAR CONDUCTION DE LAY ABNORMAL ECG NO PREVIOUS TRACING DOCTOR: Roxana Jacome Interpretating Date/Time 09/25/2017 18:58:46
[2017-09-25] MEDS: Senna/Docusate Sodium 8.6/50 MG Tablet PO SCH (22:53)
[2017-09-25] MEDS: Famotidine PF Inj 20 MG/2 ML Vial IV.PUSH SCH (22:53)
[2017-09-25] MEDS: Chlorhexidine 0.12% Oral Kit 15 ML UDC OROPHARYNG SCH (22:56)
[2017-09-26] MEDS: Midazolam 50 MG/50 ML Inj 50 MG/50 ML BAG IV.CONT PRN ×2 (00:07→04:36)
[2017-09-26] MEDS: Propofol 1000 mg/100 ml Inj 1,000 MG/100 ML BOTTLE IV.CONT PRN ×4 (00:07→06:29)
[2017-09-26] MEDS: Oral Hygiene Kit OROPHARYNG SCH ×4 (00:31→18:33)
[2017-09-26] MEDS: Sod Chloride 0.9% Inj 1,000 ML IV.CONT SCH ×2 (03:31→16:01)
[2017-09-26] MEDS ORDERED: Chlorhexidine Gluconate 2% 1 Pack (2 Cloths) TOPICAL PRN (04:00)
[2017-09-26] MEDS ORDERED: Norepinephrine Inj 4 MG in Sodium Chlor 0.9% Inj 246 ML IV.SIG PRN (04:34)
[2017-09-26 05:40] LABS: Baso % (Auto) 0.3 % (0.0-2.0); Eos % (Auto) 0.3 % (0.0-4.0); Hematocrit 40.9 % (39.0-51.0); Hemoglobin 14.1 gm/dL (13.0-17.0); Lymph # (Auto) 1.8 th/mm3 (1.0-4.8); Mean Corpuscular HGB Conc 34.5 % (32.0-36.0); Mean Corpuscular Hemoglobin 32.8 pg (27.0-34.0); Mean Platelet Volume 9.1 fL (7.0-11.0); Mono % (Auto) 7.4 % (0.0-8.0); Platelet Count 321 th/mm3 (150-450); Red Cell Distribution Width 12.1 % (11.6-17.2); White Blood Count 13.9 th/mm3 (4.0-11.0)
[2017-09-26 05:49] LABS: Activated Partial Thrombo Time 25.4 sec (24.3-30.1); INR 1.1 Ratio; Prothrombin Time 11.4 sec (9.8-11.6)
[2017-09-26 06:00] LABS: Alanine Aminotransferase 29 U/L (12-78); Albumin 3.8 g/dL (3.4-5.0); Anion Gap 9 meq/L (5-15); Aspartate Aminotransferase 17 U/L (15-37); Blood Urea Nitrogen 6 mg/dL (7-18); Calcium 9.1 mg/dL (8.5-10.1); Carbon Dioxide 25.4 meq/L (21.0-32.0); Chloride 112 meq/L (98-107); Cholesterol 197 mg/dL (120-200); Glomerular Filtration Rate 89 mL/min (>89); Glucose,Random 134 mg/dL (74-106); Magnesium 2.3 mg/dL (1.5-2.5); Potassium 3.8 meq/L (3.5-5.1); Sodium 146 meq/L (136-145); Triglycerides 130 mg/dL (42-150)
[2017-09-26 06:03] LABS: Alkaline Phosphatase 74 U/L (45-117); Chol/HDL Ratio 3.73 Ratio; HDL Cholesterol 52.7 mg/dL (40.0-60.0); LDL Cholesterol,Calculated 118 mg/dL (0-99); Phosphorus 2.9 mg/dL (2.5-4.9); Total Protein 7.6 g/dL (6.4-8.2)
[2017-09-26] MEDS: DOPamine 800 MG/500 ML Premix 800 MG/500 ML PLAST..BAG IV.CONT PRN (06:11)
[2017-09-26] MEDS: Chlorhexidine Gluconate 2% 1 Pack (2 Cloths) TOPICAL SCH (06:30)
[2017-09-26] MEDS: Famotidine PF Inj 20 MG/2 ML Vial IV.PUSH SCH ×2 (08:33→20:42)
--- NOTE | 2017-09-26 08:50 | P.PNCC ---
Subjective Subjective Remarks/Hospital Course: The patient is a 42-year-old -[place] male who presents to the emergency department via private vehicle for probable for stroke. Apparently patient's ex- was having a discussion with the patient on the phone at 9:07 AM when suddenly he developed garbled and incoherent speech. She went over to his pace and noticed that he had a change of personality, was aggressive with expressive and receptive aphasia. Patient was brought to the ED as stroke alert. In the ED patient was slightly confused and aggressive with expressive, and receptive aphasia. Ed attending discussed with Dr. Neff, nad patient immediately went for. CT/CTA of the head. There was no hemorrhage and patient received systemic TPA per protocol. Due to increasing agitation and to facilitate further imaging studies and for possible interventional radiology intervention patient was intubated and placed on mechanical ventilation. 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 Postintubation patient was taken to the IR for possible clot extraction, however it however with angiogram clot appears to have resolved after TPA. I evaluated the patient in the ICU. He is currently intubated sedated and neuromuscularly paralyzed for ventilator synchrony and to facilitate angiogram. Neuro exam is limited due to neuromuscular paralysis however pupils are equal and reactive SUBJ 09/26: Patient remains intubated and heavily sedated for patient safety. Continue vent support and sedation until imaging studies including CT head, MRI/ MRA completed. 2D echo did not show a source of emboli. Need bubble study. gives history of mother having ?PFO. Moves all extremities when sedation is lightened. Currently requiring Levophed and dopamine to keep SBP above 140 Objective Vital Signs / I&O: Vital Signs 09/25/17 09:55 09/25/17 10:05 09/25/17 10:22 Temperature 98.4 F 98.4 F Pulse Rate 92 H 93 H Respiratory Rate 16 22 Blood Pressure 144/73 H 153/68 H Pulse Oximetry 99 100 99 09/25/17 12:23 09/25/17 12:30 09/25/17 15:38 Temperature 98.9 F Pulse Rate 70 Respiratory Rate 16 14 14 Blood Pressure 123/70 Pulse Oximetry 100 100 09/25/17 16:00 09/25/17 20:00 09/25/17 20:08 Temperature 98.3 F 98.8 F Pulse Rate 61 61 Respiratory Rate 14 15 Blood Pressure 169/79 H 149/65 H Pulse Oximetry 100 100 100 09/26/17 00:00 09/26/17 00:16 09/26/17 03:48 Temperature Pulse Rate 69 Respiratory Rate 14 14 14 Blood Pressure 141/81 H Pulse Oximetry 100 100 09/26/17 04:00 Temperature 98.8 F Pulse Rate 14 L Respiratory Rate Blood Pressure 130/56 L Pulse Oximetry Intake & Output 09/25/17 09/26/17 09/26/17 18:59 06:59 18:59 Intake Total 150 / 150 2250 / 2250 Output Total 3710 / 3710 3510 / 3510 Balance -3560 / -3560 -1260 / -1260 Weight 116.1 kg 113.4 kg 113.4 kg Intake: IV 150 / 150 2250 / 2250 DOPamine 800 MG/500 ML Premix 500 / 500 800 mg In 500 ml @ 3 MCG/KG/MIN 13.061 mls/hr IV.CONT TITRATE PRN Rx#:[id number] Versed Inj 50 mg In 50 ml @ 2 150 / 150 MG/HR 2 mls/hr IV.CONT TITRATE PRN Rx#:[id number] Diprivan 1000 mg/100 ml Inj 1, 150 / 150 600 / 600 000 mg In 100 ml @ 5 MCG/KG/MIN 3.39 mls/hr IV.CONT TITRATE PRN Rx#:[id number] NS Inj 1,000 ML @ 70 mls/hr IV. 1000 / 1000 CONT .[id number] [facility] Rx#:[id number] Output: Urine Amount (Catheter) 3700 / 3700 3500 / 3500 Indwelling Urethral Catheter 3700 / 3700 3500 / 3500 Gastric Drainage Orogastric Tube Other: Date of Last Bowel Movement 09/24/17 09/24/17 # Incontinent Bowel Movements 0 0 Weight On Admission 116.1 kg Result Diagrams: 09/26/17 05:20 09/26/17 05:20 Objective Remarks: GENERAL: Patient currently sedated with propofol and Versed infusions SKIN: Warm/dry. HEAD: Atraumatic. Normocephalic. EYES: Pupils equal and round, 4 mm bilateral and reactive. ENT: No nasal bleeding or discharge. Orotracheally intubated NECK: Trachea midline. No JVD. CARDIOVASCULAR: Regular rate and rhythm. No murmur appreciated. RESPIRATORY: No accessory muscle use. Clear to auscultation. On PRVC GASTROINTESTINAL: Abdomen soft, nondistended. Hepatic and splenic margins not palpable. MUSCULOSKELETAL: No obvious deformities. NEUROLOGICAL: Patient is heavily sedated for agitation and to obtain vent synchrony. Currently on propofol and Versed infusions. On sedation lightening patient appears to move all 4 extremities Assessment and Plan - Problem List (1) Acute ischemic left middle cerebral artery (MCA) stroke Code(s): I63.512 - Cerebral infarction due to unspecified occlusion or stenosis of left middle cerebral artery Status: Acute (2) Broca's aphasia Code(s): R47.01 - Aphasia Status: Acute (3) Acute respiratory failure Code(s): J96.00 - Acute respiratory failure, unspecified whether with hypoxia or hypercapnia Status: Acute - Assessment and Plan Plan: NEURO: Acute left MCA stroke/Embolus to the Broca's Expressive and receptive aphasia Agitated delirium -Propofol and Versed for sedation and ventilator synchrony -Status post IV TPA, follow post TPA protocol -Start aspirin after 24 hours, CT head in 24 hours -F/U lipid profile, TSH, B12, 2D echo -CT angiogram of the neck did not show any hemodynamically significant occlusion -Await MRA/MRI brain per Dr. Neff -CT of brain showed embolus to the Broca's area -PT OT speech eval after extubation RESP: Acute respiratory failure -PRVC/AC, Ventilator bundle -DuoNeb every 6 hours scheduled and as needed -SBT after completing imaging studies CV: Probable mitral valve prolapse Hypertension from sedation -Normal saline IV fluids, 2d echo EF-50-55%. -Mild concentric left ventricular hypertrophy. -No atrial level shunt is demonstrated by color flow Doppler interrogation, need bubble study -Possible mild anterior leaflet prolapse, Mild mitral valve regurgitation. -Cardiology consult requested by neurology -Target systolic blood pressure less than 185/105, Keep SBP 140 -Use labetalol as needed -Currently requiring Levophed and dopamine to keep SBP above 140. Hypotension most likely from sedation -Lipitor 40 mg daily GI: Obesity -N.p.o., IV famotidine : -Monitor renal function closely. Ruano catheter. ID: -Watch closely for infection, no antibiotics indicated at this time HEME: -Monitor CBC, coags, fibrinogen -Post TPA orders ENDO: -Electrolyte replacement per protocol PROPH: -Bilateral lower extremity SCDs. IV Famotidine. No chemical DVT prophylaxis 24 hours post TPA LINES: -Utilize peripheral IVs, central line if needed CC time 35 min Code Status: Full Discussed Condition With: Dr. Neff, patient's
[2017-09-26] MEDS: Chlorhexidine 0.12% Oral Kit 15 ML UDC OROPHARYNG SCH ×2 (09:03→21:32)
[2017-09-26] MEDS: Senna/Docusate Sodium 8.6/50 MG Tablet PO SCH ×2 (09:03→21:32)
--- NOTE | 2017-09-26 09:14 | P.PNNEU ---
Subjective Subjective Comments: No acute events reported Spoke to patient's at bedside Active Medications: Active Medications Acetaminophen (Tylenol) 650 mg PO Q6H PRN PRN Reason: PAIN 1-10 AND/OR FEVER >101F Al Hydroxide/Mg Hydroxide (Milk Of Magnfranco Liq) 30 ml PO Q12H PRN PRN Reason: Mild Constipation Albuterol (Albuterol Neb (Prn)) 2.5 mg NEB Q2HR NEB PRN PRN Reason: SHORTNESS OF BREATH/WHEEZING Atorvastatin Calcium (Lipitor) 40 mg PO HS [facility] Last Admin: 09/25/17 22:55 Dose: 40 mg Bisacodyl (Dulcolax Supp) 10 mg RECTAL DAILY PRN PRN Reason: SEVERE CONSITIPATION Chlorhexidine Gluconate (Chlorhexidine 2% Cloth) 3 pack TOPICAL DAILY@0400 [facility] Stop: 10/01/17 03:59 Last Admin: 09/26/17 06:30 Dose: Not Given Chlorhexidine Gluconate (Chlorhexidine 2% Cloth) 3 pack TOPICAL DAILY@0400 PRN PRN Reason: Extra cloth needed Stop: 10/01/17 03:59 Chlorhexidine Gluconate (Peridex 0.12% Oral Kit) 15 ml OROPHARYNG BID@0800, 2000 [facility] Last Admin: 09/26/17 09:03 Dose: 15 ml Famotidine (Pepcid Pf Inj) 20 mg IV.PUSH Q12HR [facility] Last Admin: 09/26/17 08:33 Dose: 20 mg Sodium Chloride (Ns Inj) 1,000 mls @ 70 mls/hr IV.CONT .[id number] [facility] Last Admin: 09/26/17 03:31 Dose: 70 mls/hr Nicardipine HCl 25 mg/ Sodium (Chloride) 250 mls @ 50 mls/hr IV.CONT TITRATE PRN; Protocol PRN Reason: Per Protocol Propofol (Diprivan 1000 Mg/100 Ml Inj) 1,000 mg in 100 mls @ 3.39 mls/hr IV.CONT TITRATE PRN; Protocol PRN Reason: Per Protocol Last Admin: 09/26/17 06:29 Dose: 50 mcg/kg/min, 33.9 mls/hr Midazolam HCl (Versed Inj) 50 mg in 50 mls @ 2 mls/hr IV.CONT TITRATE PRN; Protocol PRN Reason: Per Protocol Last Admin: 09/26/17 04:36 Dose: 10 mg/hr, 10 mls/hr Dopamine HCl/Dextrose (Dopamine 800 Mg/500 Ml Premix) 800 mg in 500 mls @ 13.061 mls/hr IV.CONT TITRATE PRN; Protocol PRN Reason: Per Protocol Last Admin: 09/26/17 06:11 Dose: 9 mcg/kg/min, 39.18 mls/hr Norepinephrine Bitartrate 4 mg (/ Sodium Chloride) 250 mls @ 7.5 mls/hr IV.SIG TITRATE PRN; Protocol PRN Reason: Per Protocol Last Titration: 09/26/17 06:00 Dose: 8 mcg/min, 30 mls/hr Lactulose (Lactulose Liq) 30 ml PO DAILY PRN PRN Reason: SEVERE CONSITIPATION Midazolam HCl (Versed Inj) 5 mg IV.PUSH Q3H PRN PRN Reason: AGITATION Last Admin: 09/25/17 17:47 Dose: 5 mg Ondansetron HCl (Zofran Odt) 4 mg PO Q6H PRN PRN Reason: NAUSEA OR VOMITING Senna/Docusate Sodium (Radha-Colace) 1 tab PO BID [facility] Last Admin: 09/26/17 09:03 Dose: 1 tab Sennosides (Senokot) 17.2 mg PO Q12H PRN PRN Reason: Moderate Constipation Sodium Chloride (Ns Flush) 2 ml IV.FLUSH BID [facility] Last Admin: 09/26/17 09:03 Dose: 2 ml Sodium Chloride (Ns Flush) 2 ml IV.FLUSH UNSCH PRN PRN Reason: FLUSH AFTER USING IV ACCESS Terbutaline Sulfate (Brethine Inj) 1 mg SQ UNSCH PRN PRN Reason: For Extravasation Terbutaline Sulfate (Brethine Inj) 1 mg SQ ONCE PRN PRN Reason: Extravasation Terbutaline Sulfate (Brethine Inj) 1 mg SQ UNSCH PRN PRN Reason: For Extravasation Allergies/Adverse Reactions: Allergies Allergy/AdvReac Type Severity Reaction Status Date / Time No Known Allergies Allergy Unverified 09/25/17 09:57 Review of Systems All other systems reviewed negative except as stated in HPI Physical Exam Vital signs: Vital Signs 09/25/17 09:55 09/25/17 10:05 09/25/17 10:22 Temperature 98.4 F 98.4 F Pulse Rate 92 H 93 H Respiratory Rate 16 22 Blood Pressure 144/73 H 153/68 H Pulse Oximetry 99 100 99 09/25/17 12:23 09/25/17 12:30 09/25/17 15:38 Temperature 98.9 F Pulse Rate 70 Respiratory Rate 16 14 14 Blood Pressure 123/70 Pulse Oximetry 100 100 09/25/17 16:00 09/25/17 20:00 09/25/17 20:08 Temperature 98.3 F 98.8 F Pulse Rate 61 61 Respiratory Rate 14 15 Blood Pressure 169/79 H 149/65 H Pulse Oximetry 100 100 100 09/26/17 00:00 09/26/17 00:16 09/26/17 03:48 Temperature Pulse Rate 69 Respiratory Rate 14 14 14 Blood Pressure 141/81 H Pulse Oximetry 100 100 09/26/17 04:00 Temperature 98.8 F Pulse Rate 14 L Respiratory Rate Blood Pressure 130/56 L Pulse Oximetry Intake & Output 09/25/17 09/26/17 09/26/17 18:59 06:59 18:59 Intake Total 150 / 150 2250 / 2250 Output Total 3710 / 3710 3510 / 3510 Balance -3560 / -3560 -1260 / -1260 Weight 116.1 kg 113.4 kg 113.4 kg Intake: IV 150 / 150 2250 / 2250 DOPamine 800 MG/500 ML Premix 500 / 500 800 mg In 500 ml @ 3 MCG/KG/MIN 13.061 mls/hr IV.CONT TITRATE PRN Rx#:[id number] Versed Inj 50 mg In 50 ml @ 2 150 / 150 MG/HR 2 mls/hr IV.CONT TITRATE PRN Rx#:[id number] Diprivan 1000 mg/100 ml Inj 1, 150 / 150 600 / 600 000 mg In 100 ml @ 5 MCG/KG/MIN 3.39 mls/hr IV.CONT TITRATE PRN Rx#:[id number] NS Inj 1,000 ML @ 70 mls/hr IV. 1000 / 1000 CONT .[id number] [facility] Rx#:[id number] Output: Urine Amount (Catheter) 3700 / 3700 3500 / 3500 Indwelling Urethral Catheter 3700 / 3700 3500 / 3500 Gastric Drainage 10 / 10 10 / 10 Orogastric Tube Other: Date of Last Bowel Movement 09/24/17 09/24/17 # Incontinent Bowel Movements 0 0 Weight On Admission 116.1 kg Narrative: Intubated on propofol and Versed drips limited exam no involuntary movements - Urinary Catheter Management Indwelling Urethral Catheter Cath placed during this visit: yes Reason for continuing: Hourly intake/output Insertion date: 09/25/17 Objective Laboratory Results - last 24 hr 09/25/17 09/25/17 09/25/17 10:01 10:03 10:03 WBC 10.6 RBC 4.30 L Hgb 14.3 POC Hgb (Calc) Hct 41.9 POC Hct MCV 97.6 MCH 33.2 MCHC 34.0 RDW 12.3 Plt Count 274 MPV 9.6 Neut % (Auto) 53.7 Lymph % (Auto) 39.1 [place] % (Auto) 5.8 Eos % (Auto) 1.0 Baso % (Auto) 0.4 Neut # (Auto) 5.7 Lymph # (Auto) 4.1 [place] # (Auto) 0.6 Eos # (Auto) 0.1 Baso # (Auto) 0.0 WBC Differential . Differential Comment Auto diff final PT 11.2 INR 1.1 APTT 27.1 Fibrinogen 288 Puncture Site Patient Temperature O2 Saturation ABG pH ABG pCO2 ABG pO2 ABG HCO3 ABG O2 Content ABG Base Excess ABG Methemoglobin Hemoglobin Carboxyhemoglobin O2 Delivery Device Vent Setting Inspired O2 Critical Value POC Sodium Sodium POC Potassium Potassium POC Chloride Chloride Carbon Dioxide Anion Gap POC BUN BUN Creatinine POC Creatinine Estimated GFR POC Glucose Random Glucose Calcium Phosphorus Magnesium Total Bilirubin AST ALT Alkaline Phosphatase Total Creatine Kinase CK-MB (CK-2) CK-MB (CK-2) % Troponin I Total Protein Albumin Triglycerides Cholesterol LDL Cholesterol, Calc HDL Cholesterol Cholesterol/HDL Ratio Vitamin B12 480 TSH 1.590 Urine Color Urine Clarity Urine pH Ur Specific [place] Urine Protein Urine Glucose (UA) Urine Ketones Urine Occult Blood Urine Nitrate Urine Bilirubin Urine Urobilinogen Ur Leukocyte Esterase Urine RBC Ur Squamous Epith Cells Urine Mucus Micro UA Comment Urine Culture Comments Nasal Screen MRSA (PCR) Urine Opiates Screen Ur Barbiturates Screen Ur Amphetamines Screen U Benzodiazepines Scrn Urine Cocaine Screen U Cannabinoids Screen Blood Type Blood Type Recheck Antibody Screen 09/25/17 09/25/17 09/25/17 10:03 12:00 12:35 WBC RBC Hgb POC Hgb (Calc) 13.6 Hct POC Hct 40.0 MCV MCH MCHC RDW Plt Count MPV Neut % (Auto) Lymph % (Auto) [place] % (Auto) Eos % (Auto) Baso % (Auto) Neut # (Auto) Lymph # (Auto) [place] # (Auto) Eos # (Auto) Baso # (Auto) WBC Differential Differential Comment PT INR APTT Fibrinogen Puncture Site Patient Temperature O2 Saturation ABG pH ABG pCO2 ABG pO2 ABG HCO3 ABG O2 Content ABG Base Excess ABG Methemoglobin Hemoglobin Carboxyhemoglobin O2 Delivery Device Vent Setting Inspired O2 Critical Value POC Sodium 142 Sodium POC Potassium 3.7 Potassium POC Chloride 106 Chloride Carbon Dioxide Anion Gap POC BUN 12 BUN Creatinine POC Creatinine 1.2 Estimated GFR POC Glucose 98 Random Glucose Calcium Phosphorus Magnesium Total Bilirubin AST ALT Alkaline Phosphatase Total Creatine Kinase 397 H CK-MB (CK-2) 1.6 CK-MB (CK-2) % 0.4 Troponin I Less than 0.02 L Total Protein Albumin Triglycerides Cholesterol LDL Cholesterol, Calc HDL Cholesterol Cholesterol/HDL Ratio Vitamin B12 TSH Urine Color Straw Urine Clarity Clear Urine pH 6.0 Ur Specific [place] 1.024 Urine Protein Negative Urine Glucose (UA) Negative Urine Ketones Negative Urine Occult Blood Negative Urine Nitrate Negative Urine Bilirubin Negative Urine Urobilinogen Less than 2 Ur Leukocyte Esterase Negative Urine RBC 3 Ur Squamous Epith Cells <1 Urine Mucus Few H Micro UA Comment Cath-culture not ind Urine Culture Comments Cath-cult not ind Nasal Screen MRSA (PCR) Urine Opiates Screen Neg Ur Barbiturates Screen Neg Ur Amphetamines Screen Neg U Benzodiazepines Scrn Neg Urine Cocaine Screen Neg U Cannabinoids Screen Neg Blood Type Blood Type Recheck Antibody Screen 09/25/17 09/25/17 09/25/17 13:13 14:07 15:30 WBC RBC Hgb POC Hgb (Calc) Hct POC Hct MCV MCH MCHC RDW Plt Count MPV Neut % (Auto) Lymph % (Auto) [place] % (Auto) Eos % (Auto) Baso % (Auto) Neut # (Auto) Lymph # (Auto) [place] # (Auto) Eos # (Auto) Baso # (Auto) WBC Differential Differential Comment PT INR APTT Fibrinogen Puncture Site Art line Patient Temperature 98.6 O2 Saturation 97 ABG pH 7.45 H ABG pCO2 36 L ABG pO2 183 H ABG HCO3 24 ABG O2 Content 17.3 ABG Base Excess 0.8 ABG Methemoglobin 1.2 Hemoglobin 12.4 Carboxyhemoglobin 1.5 O2 Delivery Device Ventilator Vent Setting Prvc/ac Inspired O2 50 Critical Value No POC Sodium Sodium POC Potassium Potassium POC Chloride Chloride Carbon Dioxide Anion Gap POC BUN BUN Creatinine POC Creatinine Estimated GFR POC Glucose Random Glucose Calcium Phosphorus Magnesium Total Bilirubin AST ALT Alkaline Phosphatase Total Creatine Kinase CK-MB (CK-2) CK-MB (CK-2) % Troponin I Total Protein Albumin Triglycerides Cholesterol LDL Cholesterol, Calc HDL Cholesterol Cholesterol/HDL Ratio Vitamin B12 TSH Urine Color Urine Clarity Urine pH Ur Specific [place] Urine Protein Urine Glucose (UA) Urine Ketones Urine Occult Blood Urine Nitrate Urine Bilirubin Urine Urobilinogen Ur Leukocyte Esterase Urine RBC Ur Squamous Epith Cells Urine Mucus Micro UA Comment Urine Culture Comments Nasal Screen MRSA (PCR) Not detected Urine Opiates Screen Ur Barbiturates Screen Ur Amphetamines Screen U Benzodiazepines Scrn Urine Cocaine Screen U Cannabinoids Screen Blood Type AB Positive Blood Type Recheck Required Antibody Screen Negative 09/26/17 09/26/17 09/26/17 05:20 05:20 05:20 WBC 13.9 H RBC 4.30 L Hgb 14.1 POC Hgb (Calc) Hct 40.9 POC Hct MCV 95.0 MCH 32.8 MCHC 34.5 RDW 12.1 Plt Count 321 MPV 9.1 Neut % (Auto) 79.0 H Lymph % (Auto) 13.0 [place] % (Auto) 7.4 Eos % (Auto) 0.3 Baso % (Auto) 0.3 Neut # (Auto) 11.0 H Lymph # (Auto) 1.8 [place] # (Auto) 1.0 H Eos # (Auto) 0.0 Baso # (Auto) 0.0 WBC Differential . Differential Comment Auto diff final PT 11.4 INR 1.1 APTT 25.4 Fibrinogen Puncture Site Patient Temperature O2 Saturation ABG pH ABG pCO2 ABG pO2 ABG HCO3 ABG O2 Content ABG Base Excess ABG Methemoglobin Hemoglobin Carboxyhemoglobin O2 Delivery Device Vent Setting Inspired O2 Critical Value POC Sodium Sodium 146 H POC Potassium Potassium 3.8 POC Chloride Chloride 112 H Carbon Dioxide 25.4 Anion Gap 9 POC BUN BUN 6 L Creatinine 1.11 POC Creatinine Estimated GFR 89 POC Glucose Random Glucose 134 H Calcium 9.1 Phosphorus 2.9 Magnesium 2.3 Total Bilirubin 0.6 AST 17 ALT 29 Alkaline Phosphatase 74 Total Creatine Kinase CK-MB (CK-2) CK-MB (CK-2) % Troponin I Total Protein 7.6 Albumin 3.8 Triglycerides 130 Cholesterol 197 LDL Cholesterol, Calc 118 H HDL Cholesterol 52.7 Cholesterol/HDL Ratio 3.73 Vitamin B12 TSH Urine Color Urine Clarity Urine pH Ur Specific [place] Urine Protein Urine Glucose (UA) Urine Ketones Urine Occult Blood Urine Nitrate Urine Bilirubin Urine Urobilinogen Ur Leukocyte Esterase Urine RBC Ur Squamous Epith Cells Urine Mucus Micro UA Comment Urine Culture Comments Nasal Screen MRSA (PCR) Urine Opiates Screen Ur Barbiturates Screen Ur Amphetamines Screen U Benzodiazepines Scrn Urine Cocaine Screen U Cannabinoids Screen Blood Type Blood Type Recheck Antibody Screen Review/Management - Diagnosis (1) Acute ischemic stroke Code(s): I63.9 - Cerebral infarction, unspecified Status: Acute Current Visit: Yes (2) Acute ischemic left middle cerebral artery (MCA) stroke Code(s): I63.512 - Cerebral infarction due to unspecified occlusion or stenosis of left middle cerebral artery Status: Acute Current Visit: Yes (3) Broca's aphasia Code(s): R47.01 - Aphasia Status: Acute Current Visit: Yes (4) Acute respiratory failure Code(s): J96.00 - Acute respiratory failure, unspecified whether with hypoxia or hypercapnia Status: Acute Current Visit: Yes - Review/Management Plan: left mca stroke suspected s/p iv tpa etiology? Some history of patient's mother having a stroke and a PFO; thus cardiac etiology is high on the list recs post-tpa order set Follow-up CT and MRI brain scan pending Off sedation and extubation after imaging performed; discussed with critical care cardiology eval once stabilized for jorden consideration and possible loop heme eval for hypercoag state scd no blood thinners x 24 hrs bp <180/100 at all times follow exam appreciate CCM and nursing staff
--- NOTE | 2017-09-26 11:02 | CT ---
EXAM DATE: 09/26/2017 10:54 AM EDT AGE/SEX: 42 years / Male INDICATIONS: Altered mental status. Status post TPA. CLINICAL DATA: This is the patient's subsequent encounter. Patient reports that signs and symptoms h ave been present for 1 day and indicates a pain score of Nonresponsive. MEDICAL/SURGICAL HISTORY: Stroke. Non-responsive. RADIATION DOSE: 53.72 CTDI (mGy) COMPARISON: [facility] [place], CT HEAD W/O CONTRAST, 09/25/2017. . TECHNIQUE: CT of the head without contrast. Using automated exposure control and adjustment of the mA and/or kV according to patient size, radiation dose was kept as low as reasonably achievable to ob tain optimal diagnostic quality images. DICOM format image data is available electronically for revi ew and comparison. FINDINGS: Cerebrum: The ventricles are normal for age. No evidence of midline shift, mass lesion, hemorrhage or acute infarction. No extraaxial fluid collections are seen. Posterior Fossa: The cerebellum and brainstem are intact. The 4th ventricle is midline. The cerebe llopontine angle is unremarkable. Extracranial: The visualized portion of the orbits is intact. Fluid in the ethmoid and sphenoid sinu ses. Skull: The calvaria is intact. No evidence of skull fracture. CONCLUSION: 1. No acute hemorrhage. 2. Fluid in the paranasal sinuses. . Electronically signed by: Daniel Sarmiento MD 09/26/2017 11:00 AM EDT
--- NOTE | 2017-09-26 11:43 | MR ---
EXAM DATE: 09/26/2017 11:34 AM EDT AGE/SEX: 42 years / Male INDICATIONS: Altered mental status. Stroke. CLINICAL DATA: This is the patient's initial encounter. Patient reports that signs and symptoms have been present for 2 days and indicates a pain score of 0/10. MEDICAL/SURGICAL HISTORY: None. None. vent COMPARISON: [facility] – [place], MR HEAD W/O CONTRAST, 09/26/2017. . TECHNIQUE: 3D [id number] MRA was performed. Source images, multiplanar STS MIP, and 3D volum e MIP reconstructions were reviewed. FINDINGS: There is excellent visualization of the major intracranial arteries out to the second-order branch ve ssels. There is no evidence for aneurysm, vessel truncation or stenosis, and no evidence for vascula r malformation. Bilateral posterior to indicating arteries. Small Anterior commuting artery seen. CONCLUSION: 1. No large vessel stenosis or aneurysm. Electronically signed by: Daniel Sarmiento MD 09/26/2017 11:42 AM EDT
--- NOTE | 2017-09-26 11:48 | MR ---
EXAM DATE: 09/26/2017 11:28 AM EDT AGE/SEX: 42 years / Male INDICATIONS: Altered mental status. Stroke. CLINICAL DATA: This is the patient's initial encounter. Patient reports that signs and symptoms have been present for 2 days and indicates a pain score of 0/10. MEDICAL/SURGICAL HISTORY: None. None. vent COMPARISON: [facility] [place], MRA HEAD W/O CONTRAST, 09/26/2017. . TECHNIQUE: Multiplanar, multisequence examination of the brain was performed without contrast. FINDINGS: There is high FLAIR abnormality within the right posterior temporal lobe along the cortex which demon strates restricted diffusion. There is also some minimal restricted diffusion left temporal lobe ramon g the cortex. Midline structures are normal. Ventricles are patent. No acute hemorrhage or midline sh ift. No masses. CONCLUSION: 1. There is an infarct along the right temporal lobe. 2. Minimal changes are seen in the left temporal lobe suggesting some minimal ischemia as well altho ugh may be artifactual. Electronically signed by: Daniel Sarmiento MD 09/26/2017 11:47 AM EDT
[2017-09-26] MEDS ORDERED: Dexmedetomidine Inj 200 MCG/2 ML Vial IV.PUSH ONE (11:56)
[2017-09-26] MEDS: Acetaminophen 325 MG Tablet PO PRN ×2 (12:07→16:01)
[2017-09-26] MEDS ORDERED: DOPamine 400 MG/250 ML Premix 400 MG/250 ML BAG IV.CONT PRN (20:15)
--- NOTE | 2017-09-26 20:25 | MG ---
cc: Quinten Neff MD, Mandeep MD EEG NUMBER [id number] Increased alpha beta frequencies with underlying mild delta activity suggestive of stage II sleep and pharmacological agents. No significant asymmetry. Limited driving with photic stimulation. Single lead EKG showing some premature type contractions. INTERPRETATION: Mild encephalopathy, sleep state with increased beta frequencies likely pharmacologically induced. Clinical correlation. MD PANKAJ Torres/ , 08:00 PM , 08:23 PM
--- NOTE | 2017-09-26 21:19 | P.CONCA ---
History of Present Illness Service: Cardiology CP Consult date: 09/26/17 Reason for Consult: Stroke, ERIN, Loop recorder implant Primary Care Provider: Kelsie Victoria MD Chief Complaint: acute stroke History of Present Illness: 42-year-old -[place] male, with no significant past medical history, was admitted to hospital yesterday for acute stroke. Apparently patient's ex- was having a discussion with the patient on the phone at 9:07 AM when suddenly he developed garbled and incoherent speech. acute change in personality. Stroke alert was called, patient received tPA therapy. CTA showed RCA occlusion, evaluated by interventional radiologist, no intervention was performed. patient was initially intubated for airway protection, currently extubated. Review of Systems All other systems reviewed negative except as stated in HPI [facility] - History History Provided By: Significant Other - Medical / Surgical Hx Neg / Unobtainable Medical Problems Denied: Unable to Obtain - Medical History Medical History: Medical History (Last Updated 09/26/17 @ 07:46 by Anayeli Edwards RN) Patient denies medical problems (Acute) - Surgical History Surgical History: Surgical History (Last Updated 09/26/17 @ 07:46 by Anayeli Edwards RN) No history of previous surgery (Acute) - Tobacco History Second Hand Smoke Exposure: No Smoking Status: Unknown if ever smoked - Alcohol History How Often Do You Have a Drink Containing Alcohol: Unable to Obtain - Substance Use History Substance History: Unable to Obtain - Travel History Recent Travel in the [place] Within the Last 8 Weeks: No Recent Travel Out of the Country Within the Last 8 Weeks: No - Immunization History Tetanus Immunization: Unable to Assess Hx Influenza Vaccine This Season: Unable to Assess Medications and Allergies Active Medications: Active Medications Acetaminophen (Tylenol) 650 mg PO Q6H PRN PRN Reason: PAIN 1-10 AND/OR FEVER >101F Last Admin: 09/26/17 16:01 Dose: 650 mg Al Hydroxide/Mg Hydroxide (Milk Of Magnesia Liq) 30 ml PO Q12H PRN PRN Reason: Mild Constipation Albuterol (Albuterol Neb (Prn)) 2.5 mg NEB Q2HR NEB PRN PRN Reason: SHORTNESS OF BREATH/WHEEZING Atorvastatin Calcium (Lipitor) 40 mg PO HS [facility] Last Admin: 09/25/17 22:55 Dose: 40 mg Bisacodyl (Dulcolax Supp) 10 mg RECTAL DAILY PRN PRN Reason: SEVERE CONSITIPATION Chlorhexidine Gluconate (Chlorhexidine 2% Cloth) 3 pack TOPICAL DAILY@0400 [facility] Stop: 10/01/17 03:59 Last Admin: 09/26/17 06:30 Dose: Not Given Chlorhexidine Gluconate (Chlorhexidine 2% Cloth) 3 pack TOPICAL DAILY@0400 PRN PRN Reason: Extra cloth needed Stop: 10/01/17 03:59 Chlorhexidine Gluconate (Peridex 0.12% Oral Kit) 15 ml OROPHARYNG BID@0800, 2000 [facility] Last Admin: 09/26/17 09:03 Dose: 15 ml Famotidine (Pepcid Pf Inj) 20 mg IV.PUSH Q12HR [facility] Last Admin: 09/26/17 20:42 Dose: 20 mg Sodium Chloride (Ns Inj) 1,000 mls @ 70 mls/hr IV.CONT .[id number] [facility] Last Admin: 09/26/17 16:01 Dose: 70 mls/hr Nicardipine HCl 25 mg/ Sodium (Chloride) 250 mls @ 50 mls/hr IV.CONT TITRATE PRN; Protocol PRN Reason: Per Protocol Propofol (Diprivan 1000 Mg/100 Ml Inj) 1,000 mg in 100 mls @ 3.39 mls/hr IV.CONT TITRATE PRN; Protocol PRN Reason: Per Protocol Last Admin: 09/26/17 06:29 Dose: 50 mcg/kg/min, 33.9 mls/hr Midazolam HCl (Versed Inj) 50 mg in 50 mls @ 2 mls/hr IV.CONT TITRATE PRN; Protocol PRN Reason: Per Protocol Last Admin: 09/26/17 04:36 Dose: 10 mg/hr, 10 mls/hr Norepinephrine Bitartrate 4 mg (/ Sodium Chloride) 250 mls @ 7.5 mls/hr IV.SIG TITRATE PRN; Protocol PRN Reason: Per Protocol Last Titration: 09/26/17 06:00 Dose: 8 mcg/min, 30 mls/hr Dopamine HCl/Dextrose (Dopamine 400 Mg/250 Ml Premix) 400 mg in 250 mls @ 13.061 mls/hr IV.CONT TITRATE PRN; Protocol PRN Reason: Per Protocol Last Admin: 09/26/17 20:41 Dose: 3 mcg/kg/min, 13.06 mls/hr Lactulose (Lactulose Liq) 30 ml PO DAILY PRN PRN Reason: SEVERE CONSITIPATION Midazolam HCl (Versed Inj) 5 mg IV.PUSH Q3H PRN PRN Reason: AGITATION Last Admin: 09/25/17 17:47 Dose: 5 mg Ondansetron HCl (Zofran Odt) 4 mg PO Q6H PRN PRN Reason: NAUSEA OR VOMITING Senna/Docusate Sodium (Radha-Colace) 1 tab PO BID [facility] Last Admin: 09/26/17 09:03 Dose: 1 tab Sennosides (Senokot) 17.2 mg PO Q12H PRN PRN Reason: Moderate Constipation Sodium Chloride (Ns Flush) 2 ml IV.FLUSH BID [facility] Last Admin: 09/26/17 20:42 Dose: 2 ml Sodium Chloride (Ns Flush) 2 ml IV.FLUSH UNSCH PRN PRN Reason: FLUSH AFTER USING IV ACCESS Terbutaline Sulfate (Brethine Inj) 1 mg SQ UNSCH PRN PRN Reason: For Extravasation Terbutaline Sulfate (Brethine Inj) 1 mg SQ ONCE PRN PRN Reason: Extravasation Terbutaline Sulfate (Brethine Inj) 1 mg SQ UNSCH PRN PRN Reason: For Extravasation Allergies Allergy/AdvReac Type Severity Reaction Status Date / Time No Known Allergies Allergy Unverified 09/25/17 09:57 Home Medications Medication Instructions Recorded Confirmed Type No Known Home Medications 09/25/17 09/25/17 History Exam Vital signs: Vital Signs 09/26/17 00:00 09/26/17 00:16 09/26/17 03:48 Temperature Pulse Rate 69 Respiratory Rate 14 14 14 Blood Pressure 141/81 H Pulse Oximetry 100 100 09/26/17 04:00 09/26/17 08:00 09/26/17 09:00 Temperature 98.8 F 99.2 F Pulse Rate 14 L 82 82 Respiratory Rate 14 Blood Pressure 130/56 L 150/72 H Pulse Oximetry 09/26/17 09:30 09/26/17 11:42 09/26/17 11:43 Temperature Pulse Rate Respiratory Rate 14 18 Blood Pressure Pulse Oximetry 100 98 100 09/26/17 12:00 09/26/17 16:00 Temperature 101 F H 99.5 F Pulse Rate 74 90 Respiratory Rate 14 29 H Blood Pressure 155/80 H 142/73 H Pulse Oximetry 100 Intake & Output 09/26/17 09/26/17 09/27/17 06:59 18:59 06:59 Intake Total 2250 / 2250 1250 / 1250 Output Total 3510 / 3510 2009 Balance -1260 / -1260 -760 / -760 Weight 113.4 kg 113.4 kg Intake: IV 2250 / 2250 1000 / 1000 DOPamine 800 MG/500 ML Premix 500 / 500 800 mg In 500 ml @ 3 MCG/KG/MIN 13.061 mls/hr IV.CONT TITRATE PRN Rx#:[id number] Versed Inj 50 mg In 50 ml @ 2 150 / 150 MG/HR 2 mls/hr IV.CONT TITRATE PRN Rx#:[id number] Diprivan 1000 mg/100 ml Inj 1, 600 / 600 000 mg In 100 ml @ 5 MCG/KG/MIN 3.39 mls/hr IV.CONT TITRATE PRN Rx#:[id number] NS Inj 1,000 ML @ 70 mls/hr IV. 1000 / 1000 1000 / 1000 CONT .[id number] [facility] Rx#:[id number] Other 250 / 250 Output: Urine Amount (Catheter) 3500 / 3500 1999 Indwelling Urethral Catheter 3500 / 3500 1999 Gastric Drainage Orogastric Tube Other: Date of Last Bowel Movement 09/24/17 09/24/17 # Incontinent Bowel Movements 0 0 Weight On Admission 116.1 kg - Constitutional no acute distress - Routine HEENT Exam Head: Present: normocephalic, atraumatic Eye: Present: EOMI, PERRL ENT: Present: mucous membranes moist - Routine Neck Exam Present: supple, full ROM. Absent: JVD, carotid bruit - Routine Chest/Breast/Axilla Exam Chest wall: Absent: tenderness - Routine Respiratory Exam Present: CTA bilaterally. Absent: accessory muscle use - Routine Cardiovascular Exam Present: RRR, S1, S2. Absent: murmur, gallop, rubs - Routine Abdominal Exam Present: soft, normoactive bowel sounds. Absent: tenderness - Routine Extremities Exam Present: full ROM. Absent: cyanosis, edema - Routine Skin Exam Present: intact - Routine Neurological Exam Present: alert, oriented X3 Results 09/26/17 05:20 09/26/17 05:20 Cardiac Enzymes 09/26/17 Range/Units 05:20 AST 17 (15-37) U/L Coagulation 09/26/17 Range/Units 05:20 PT 11.4 (9.8-11.6) sec APTT 25.4 (24.3-30.1) sec Lipids 09/26/17 Range/Units 05:20 Triglycerides 130 (42-150) mg/dL Cholesterol 197 (120-200) mg/dL HDL Cholesterol 52.7 (40.0-60.0) mg/dL Cholesterol/HDL Ratio 3.73 Ratio CBC 09/26/17 Range/Units 05:20 WBC 13.9 H (4.0-11.0) th/mm3 RBC 4.30 L (4.50-5.90) mil/mm3 Hgb 14.1 (13.0-17.0) gm/dL Hct 40.9 (39.0-51.0) % Plt Count 321 (150-450) th/mm3 Neut # (Auto) 11.0 H (1.8-7.7) th/mm3 Lymph # (Auto) 1.8 (1.0-4.8) th/mm3 [place] # (Auto) 1.0 H (0.0-0.9) th/mm3 Eos # (Auto) 0.0 (0.0-0.4) th/mm3 Baso # (Auto) 0.0 (0.0-0.2) th/mm3 Comprehensive Metabolic Panel 09/26/17 Range/Units 05:20 Sodium 146 H (136-145) meq/L Potassium 3.8 (3.5-5.1) meq/L Chloride 112 H (98-107) meq/L Carbon Dioxide 25.4 (21.0-32.0) meq/L BUN 6 L (7-18) mg/dL Creatinine 1.11 (0.60-1.30) mg/dL Calcium 9.1 (8.5-10.1) mg/dL AST 17 (15-37) U/L ALT 29 (12-78) U/L Alkaline Phosphatase 74 (45-117) U/L Total Protein 7.6 (6.4-8.2) g/dL Albumin 3.8 (3.4-5.0) g/dL Intake and Output 09/26/17 09/26/17 09/26/17 06:59 14:59 22:59 Intake Total 1999 1250 / 1250 Output Total 3510 / 3510 2009 Balance -1510 / -1510 -760 / -760 Intake: IV 1999 1000 / 1000 DOPamine 800 MG/500 ML Premix 500 / 500 800 mg In 500 ml @ 3 MCG/KG/MIN 13.061 mls/hr IV.CONT TITRATE PRN Rx#:[id number] Versed Inj 50 mg In 50 ml @ 2 100 / 100 MG/HR 2 mls/hr IV.CONT TITRATE PRN Rx#:[id number] Diprivan 1000 mg/100 ml Inj 1, 400 / 400 000 mg In 100 ml @ 5 MCG/KG/MIN 3.39 mls/hr IV.CONT TITRATE PRN Rx#:[id number] NS Inj 1,000 ML @ 70 mls/hr IV. 999 1000 / 1000 CONT .[id number] [facility] Rx#:[id number] Other 250 / 250 Output: Urine Amount (Catheter) 3500 / 3500 1999 Indwelling Urethral Catheter 3500 / 3500 1999 Gastric Drainage Orogastric Tube Other: Date of Last Bowel Movement 09/24/17 09/24/17 09/24/17 # Incontinent Bowel Movements 0 0 Weight 113.4 kg 113.4 kg Weight On Admission 116.1 kg Patient Weight 09/27/17 06:59 Weight 113.4 kg EKG interpretations - Dysrhythmias Sinus rhythms and dysrhythmias: sinus rhythm Assessment and Plan - Assessment (1) Acute ischemic left middle cerebral artery (MCA) stroke Code(s): I63.512 - Cerebral infarction due to unspecified occlusion or stenosis of left middle cerebral artery Status: Acute (2) Broca's aphasia Code(s): R47.01 - Aphasia Status: Acute (3) Acute respiratory failure Code(s): J96.00 - Acute respiratory failure, unspecified whether with hypoxia or hypercapnia Status: Acute - Plan 42 years old man with no past medical history developed acute left MCA stroke Echocardiogram showed no significant abnormality. currently under good management of neurologist. Should be on aspirin, statin. neurology recommend ERIN to rule out possible PFO, intracardiac thrombus and possible loop recorder implantation to rule out atrial fibrillation. Will make arrangement on Thursday. I am covering for [facility] cardiology this weakened.
[2017-09-27] MEDS: Oral Hygiene Kit OROPHARYNG SCH ×2 (02:57→05:17)
--- NOTE | 2017-09-27 03:07 | P.CON ---
History of Present Illness Service: Hematology Consult date: 09/26/17 Reason for Consult: Stroke, Hypercoagulable state Primary Care Provider: Kelsie Victoria MD Chief Complaint: acute stroke History of Present Illness: This is a 42-year-old male with no significant past medical history who is brought to the emergency room after he developed incoherent speech. Patient was having a conversation with his ex- over the phone and he suddenly developed incoherent speech. The patient was having word finding difficulty. His ex- also noted changes in his personality. He was confused and appeared aggressive. In the emergency department a CT angiogram of the brain was obtained which revealed a branch vessel embolus to the Broca area in the left temporal lobe. There is no evidence of hemorrhage. Patient underwent systemic TPA. The patient was agitated on admission and to facilitate further imaging studies and treatment he was intubated and placed on mechanical ventilation. Postintubation, he was taken to IR for clot extraction however the angiogram revealed that the clot had resolved after the TPA. Patient has been extubated. He did have a 2D echocardiogram which did not show a source of emboli. The patient's ex- is at bedside. Patient still has significant receptive aphasia. He is mildly agitated and insisting that he would like to go home. 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 He has been in good health and works out regularly. Hematology has been consulted to make further recommendations in this patient who has a stroke at an early age of 42. An underlying hypercoagulable state is suspected. A complete review of system could not be completed since patient has significant receptive aphasia. I did obtain medical history through his ex- who was present at bedside. Review of Systems All other systems reviewed negative except as stated in HPI [facility] - History History Provided By: Significant Other - Medical / Surgical Hx Neg / Unobtainable Medical Problems Denied: Unable to Obtain - Medical History Medical History: Medical History (Last Reviewed 09/27/17 @ 13:16 by Oskar Lord MD) Patient denies medical problems (Acute) - Surgical History Surgical History: Surgical History (Last Reviewed 09/27/17 @ 13:16 by Oskar Lord MD) No history of previous surgery (Acute) - Tobacco History Second Hand Smoke Exposure: No Smoking Status: Unknown if ever smoked - Alcohol History How Often Do You Have a Drink Containing Alcohol: Unable to Obtain - Substance Use History Substance History: Unable to Obtain - Travel History Recent Travel in the [place] Within the Last 8 Weeks: No Recent Travel Out of the Country Within the Last 8 Weeks: No - Immunization History Tetanus Immunization: Unable to Assess Hx Influenza Vaccine This Season: Unable to Assess Medications and Allergies Active Medications: Active Medications Acetaminophen (Tylenol) 650 mg PO Q6H PRN PRN Reason: PAIN 1-10 AND/OR FEVER >101F Last Admin: 09/26/17 16:01 Dose: 650 mg Al Hydroxide/Mg Hydroxide (Milk Of Kayode Glez) 30 ml PO Q12H PRN PRN Reason: Mild Constipation Albuterol (Albuterol Neb (Prn)) 2.5 mg NEB Q2HR NEB PRN PRN Reason: SHORTNESS OF BREATH/WHEEZING Atorvastatin Calcium (Lipitor) 40 mg PO HS [facility] Last Admin: 09/26/17 21:32 Dose: Not Given Bisacodyl (Dulcolax Supp) 10 mg RECTAL DAILY PRN PRN Reason: SEVERE CONSITIPATION Chlorhexidine Gluconate (Chlorhexidine 2% Cloth) 3 pack TOPICAL DAILY@0400 [facility] Stop: 10/01/17 03:59 Last Admin: 09/26/17 06:30 Dose: Not Given Chlorhexidine Gluconate (Chlorhexidine 2% Cloth) 3 pack TOPICAL DAILY@0400 PRN PRN Reason: Extra cloth needed Stop: 10/01/17 03:59 Chlorhexidine Gluconate (Peridex 0.12% Oral Kit) 15 ml OROPHARYNG BID@0800, 2000 [facility] Last Admin: 09/26/17 21:32 Dose: Not Given Famotidine (Pepcid Pf Inj) 20 mg IV.PUSH Q12HR [facility] Last Admin: 09/26/17 20:42 Dose: 20 mg Sodium Chloride (Ns Inj) 1,000 mls @ 70 mls/hr IV.CONT .[id number] [facility] Last Admin: 09/26/17 16:01 Dose: 70 mls/hr Nicardipine HCl 25 mg/ Sodium (Chloride) 250 mls @ 50 mls/hr IV.CONT TITRATE PRN; Protocol PRN Reason: Per Protocol Propofol (Diprivan 1000 Mg/100 Ml Inj) 1,000 mg in 100 mls @ 3.39 mls/hr IV.CONT TITRATE PRN; Protocol PRN Reason: Per Protocol Last Admin: 09/26/17 06:29 Dose: 50 mcg/kg/min, 33.9 mls/hr Midazolam HCl (Versed Inj) 50 mg in 50 mls @ 2 mls/hr IV.CONT TITRATE PRN; Protocol PRN Reason: Per Protocol Last Admin: 09/26/17 04:36 Dose: 10 mg/hr, 10 mls/hr Norepinephrine Bitartrate 4 mg (/ Sodium Chloride) 250 mls @ 7.5 mls/hr IV.SIG TITRATE PRN; Protocol PRN Reason: Per Protocol Last Titration: 09/26/17 06:00 Dose: 8 mcg/min, 30 mls/hr Dopamine HCl/Dextrose (Dopamine 400 Mg/250 Ml Premix) 400 mg in 250 mls @ 13.061 mls/hr IV.CONT TITRATE PRN; Protocol PRN Reason: Per Protocol Last Admin: 09/26/17 20:41 Dose: 3 mcg/kg/min, 13.06 mls/hr Lactulose (Lactulose Liq) 30 ml PO DAILY PRN PRN Reason: SEVERE CONSITIPATION Midazolam HCl (Versed Inj) 5 mg IV.PUSH Q3H PRN PRN Reason: AGITATION Last Admin: 09/25/17 17:47 Dose: 5 mg Ondansetron HCl (Zofran Odt) 4 mg PO Q6H PRN PRN Reason: NAUSEA OR VOMITING Senna/Docusate Sodium (Radha-Colace) 1 tab PO BID [facility] Last Admin: 09/26/17 21:32 Dose: Not Given Sennosides (Senokot) 17.2 mg PO Q12H PRN PRN Reason: Moderate Constipation Sodium Chloride (Ns Flush) 2 ml IV.FLUSH BID [facility] Last Admin: 09/26/17 20:42 Dose: 2 ml Sodium Chloride (Ns Flush) 2 ml IV.FLUSH UNSCH PRN PRN Reason: FLUSH AFTER USING IV ACCESS Terbutaline Sulfate (Brethine Inj) 1 mg SQ UNSCH PRN PRN Reason: For Extravasation Terbutaline Sulfate (Brethine Inj) 1 mg SQ ONCE PRN PRN Reason: Extravasation Terbutaline Sulfate (Brethine Inj) 1 mg SQ UNSCH PRN PRN Reason: For Extravasation Allergies Allergy/AdvReac Type Severity Reaction Status Date / Time No Known Allergies Allergy Unverified 09/25/17 09:57 Home Medications Medication Instructions Recorded Confirmed Type No Known Home Medications 09/25/17 09/25/17 History Physical Exam Vital signs: Vital Signs 09/26/17 03:48 09/26/17 04:00 09/26/17 08:00 Temperature 98.8 F 99.2 F Pulse Rate 14 L 82 Respiratory Rate 14 14 Blood Pressure 130/56 L 150/72 H Pulse Oximetry 100 09/26/17 09:00 09/26/17 09:30 09/26/17 11:42 Temperature Pulse Rate 82 Respiratory Rate 14 18 Blood Pressure Pulse Oximetry 100 98 09/26/17 11:43 09/26/17 12:00 09/26/17 16:00 Temperature 101 F H 99.5 F Pulse Rate 74 90 Respiratory Rate 14 29 H Blood Pressure 155/80 H 142/73 H Pulse Oximetry 100 100 09/26/17 20:00 09/27/17 00:00 Temperature 99.4 F Pulse Rate 88 86 Respiratory Rate 20 19 Blood Pressure 140/63 119/86 Pulse Oximetry 98 Intake & Output 09/26/17 09/26/17 09/27/17 06:59 18:59 06:59 Intake Total 2250 / 2250 1250 / 1250 Output Total 3510 / 3510 2009 Balance -1260 / -1260 -760 / -760 Weight 113.4 kg 113.4 kg Intake: IV 2250 / 2250 1000 / 1000 DOPamine 800 MG/500 ML Premix 500 / 500 800 mg In 500 ml @ 3 MCG/KG/MIN 13.061 mls/hr IV.CONT TITRATE PRN Rx#:[id number] Versed Inj 50 mg In 50 ml @ 2 150 / 150 MG/HR 2 mls/hr IV.CONT TITRATE PRN Rx#:[id number] Diprivan 1000 mg/100 ml Inj 1, 600 / 600 000 mg In 100 ml @ 5 MCG/KG/MIN 3.39 mls/hr IV.CONT TITRATE PRN Rx#:[id number] NS Inj 1,000 ML @ 70 mls/hr IV. 1000 / 1000 1000 / 1000 CONT .[id number] [facility] Rx#:[id number] Other 250 / 250 Output: Urine Amount (Catheter) 3500 / 3500 1999 Indwelling Urethral Catheter 3500 / 3500 1999 Gastric Drainage Orogastric Tube Other: Date of Last Bowel Movement 09/24/17 09/24/17 09/24/17 # Incontinent Bowel Movements 0 0 Weight On Admission 116.1 kg - Constitutional no acute distress - Routine HEENT Exam Head: Present: normocephalic, atraumatic - Routine Neck Exam Present: supple, full ROM, trachea midline - Routine Respiratory Exam Present: CTA bilaterally - Routine Cardiovascular Exam Present: RRR, S1, S2 - Routine Abdominal Exam Present: soft, normoactive bowel sounds - Routine Extremities Exam Present: full ROM, pulses intact, normal capillary refill - Routine Skin Exam Present: intact, dry, warm - Routine Neurological Exam Present: alert, oriented X3, CN II-XII intact - Urinary Catheter Management Indwelling Urethral Catheter Cath placed during this visit: yes Reason for continuing: Hourly intake/output Insertion date: 09/25/17 Assessment and Plan - Assessment (1) Acute ischemic stroke Code(s): I63.9 - Cerebral infarction, unspecified Status: Acute (2) Acute ischemic left middle cerebral artery (MCA) stroke Code(s): I63.512 - Cerebral infarction due to unspecified occlusion or stenosis of left middle cerebral artery Status: Acute (3) Broca's aphasia Code(s): R47.01 - Aphasia Status: Acute - Plan This is a 42-year-old male with no significant past medical history who is brought to the emergency room after he developed incoherent speech. . In the emergency department a CT angiogram of the brain was obtained which revealed a branch vessel embolus to the Broca area in the left temporal lobe. There is no evidence of hemorrhage. Patient underwent systemic TPA with resolution of based on angiogram: 1. Acute ischemic left middle cerebral artery stroke The patient is status post TPA with resolution of the clot. CTA of the brain showed embolus to the Broca's area. There is obviously concern for underlying hypercoagulable state in this patient who has suffered a stroke at a very young age. In addition to the workup including a bubble study and loop recorder, I would obtain hypercoagulable workup. We cannot complete all the hypercoagulable workup because in acute setting results of some of the studies are not reliable. We can reliably check for factor V Leiden, prothrombin mutation, antiphospholipid antibodies, homocystine and KIM. I would recommend medical optimization for stroke prevention. He would need aggressive PT and OT. Consider obtaining a CT angiogram of the chest to identify any PE.
[2017-09-27] MEDS: Acetaminophen 325 MG Tablet PO PRN (03:30)
[2017-09-27] MEDS: Chlorhexidine Gluconate 2% 1 Pack (2 Cloths) TOPICAL SCH (05:18)
[2017-09-27] MEDS: Sod Chloride 0.9% Inj 1,000 ML IV.CONT SCH (06:17)
[2017-09-27] MEDS: Famotidine PF Inj 20 MG/2 ML Vial IV.PUSH SCH ×2 (08:18→20:12)
[2017-09-27] MEDS: Chlorhexidine 0.12% Oral Kit 15 ML UDC OROPHARYNG SCH ×2 (08:18→20:13)
[2017-09-27] MEDS: Senna/Docusate Sodium 8.6/50 MG Tablet PO SCH ×2 (08:19→20:11)
--- NOTE | 2017-09-27 09:42 | P.PNNEU ---
Subjective Subjective Comments: No acute events reported No headache No chest pain No dyspnea Very anxious Active Medications: Active Medications Acetaminophen (Tylenol) 650 mg PO Q6H PRN PRN Reason: PAIN 1-10 AND/OR FEVER >101F Last Admin: 09/27/17 03:30 Dose: 650 mg Al Hydroxide/Mg Hydroxide (Milk Of Magnfranco Liq) 30 ml PO Q12H PRN PRN Reason: Mild Constipation Albuterol (Albuterol Neb (Prn)) 2.5 mg NEB Q2HR NEB PRN PRN Reason: SHORTNESS OF BREATH/WHEEZING Atorvastatin Calcium (Lipitor) 40 mg PO HS [facility] Last Admin: 09/26/17 21:32 Dose: Not Given Bisacodyl (Dulcolax Supp) 10 mg RECTAL DAILY PRN PRN Reason: SEVERE CONSITIPATION Chlorhexidine Gluconate (Chlorhexidine 2% Cloth) 3 pack TOPICAL DAILY@0400 [facility] Stop: 10/01/17 03:59 Last Admin: 09/27/17 05:18 Dose: 3 pack Chlorhexidine Gluconate (Chlorhexidine 2% Cloth) 3 pack TOPICAL DAILY@0400 PRN PRN Reason: Extra cloth needed Stop: 10/01/17 03:59 Chlorhexidine Gluconate (Peridex 0.12% Oral Kit) 15 ml OROPHARYNG BID@0800, 2000 [facility] Last Admin: 09/27/17 08:18 Dose: Not Given Famotidine (Pepcid Pf Inj) 20 mg IV.PUSH Q12HR [facility] Last Admin: 09/27/17 08:18 Dose: 20 mg Sodium Chloride (Ns Inj) 1,000 mls @ 70 mls/hr IV.CONT .[id number] [facility] Last Admin: 09/27/17 06:17 Dose: 70 mls/hr Nicardipine HCl 25 mg/ Sodium (Chloride) 250 mls @ 50 mls/hr IV.CONT TITRATE PRN; Protocol PRN Reason: Per Protocol Propofol (Diprivan 1000 Mg/100 Ml Inj) 1,000 mg in 100 mls @ 3.39 mls/hr IV.CONT TITRATE PRN; Protocol PRN Reason: Per Protocol Last Admin: 09/26/17 06:29 Dose: 50 mcg/kg/min, 33.9 mls/hr Midazolam HCl (Versed Inj) 50 mg in 50 mls @ 2 mls/hr IV.CONT TITRATE PRN; Protocol PRN Reason: Per Protocol Last Admin: 09/26/17 04:36 Dose: 10 mg/hr, 10 mls/hr Norepinephrine Bitartrate 4 mg (/ Sodium Chloride) 250 mls @ 7.5 mls/hr IV.SIG TITRATE PRN; Protocol PRN Reason: Per Protocol Last Titration: 09/26/17 06:00 Dose: 8 mcg/min, 30 mls/hr Dopamine HCl/Dextrose (Dopamine 400 Mg/250 Ml Premix) 400 mg in 250 mls @ 13.061 mls/hr IV.CONT TITRATE PRN; Protocol PRN Reason: Per Protocol Last Titration: 09/27/17 02:00 Dose: 4 mcg/kg/min, 17.42 mls/hr Lactulose (Lactulose Liq) 30 ml PO DAILY PRN PRN Reason: SEVERE CONSITIPATION Midazolam HCl (Versed Inj) 5 mg IV.PUSH Q3H PRN PRN Reason: AGITATION Last Admin: 09/25/17 17:47 Dose: 5 mg Ondansetron HCl (Zofran Odt) 4 mg PO Q6H PRN PRN Reason: NAUSEA OR VOMITING Senna/Docusate Sodium (Radha-Colace) 1 tab PO BID [facility] Last Admin: 09/27/17 08:19 Dose: Not Given Sennosides (Senokot) 17.2 mg PO Q12H PRN PRN Reason: Moderate Constipation Sodium Chloride (Ns Flush) 2 ml IV.FLUSH BID [facility] Last Admin: 09/27/17 08:19 Dose: 2 ml Sodium Chloride (Ns Flush) 2 ml IV.FLUSH UNSCH PRN PRN Reason: FLUSH AFTER USING IV ACCESS Terbutaline Sulfate (Brethine Inj) 1 mg SQ UNSCH PRN PRN Reason: For Extravasation Terbutaline Sulfate (Brethine Inj) 1 mg SQ ONCE PRN PRN Reason: Extravasation Terbutaline Sulfate (Brethine Inj) 1 mg SQ UNSCH PRN PRN Reason: For Extravasation Allergies/Adverse Reactions: Allergies Allergy/AdvReac Type Severity Reaction Status Date / Time No Known Allergies Allergy Unverified 09/25/17 09:57 Review of Systems All other systems reviewed negative except as stated in HPI Physical Exam Vital signs: Vital Signs 09/26/17 11:42 09/26/17 11:43 09/26/17 12:00 Temperature 101 F H Pulse Rate 74 Respiratory Rate 18 14 Blood Pressure 155/80 H Pulse Oximetry 98 100 09/26/17 16:00 09/26/17 20:00 09/27/17 00:00 Temperature 99.5 F 99.4 F Pulse Rate 90 88 86 Respiratory Rate 29 H 20 19 Blood Pressure 142/73 H 140/63 119/86 Pulse Oximetry 100 98 09/27/17 04:00 09/27/17 07:44 09/27/17 08:00 Temperature 98.3 F 99.1 F Pulse Rate 84 94 H Respiratory Rate 25 H 24 Blood Pressure 151/59 H 172/67 H Pulse Oximetry 100 100 Intake & Output 09/26/17 09/27/17 09/27/17 18:59 06:59 18:59 Intake Total 1250 / 1250 1000 / 1000 Output Total 2009 650 / 650 Balance -760 / -760 350 / 350 Weight 113.4 kg 114.5 kg Intake: IV 1000 / 1000 1000 / 1000 NS Inj 1,000 ML @ 70 mls/hr IV. 1000 / 1000 1000 / 1000 CONT .[id number] [facility] Rx#:[id number] Other 250 / 250 Output: Urine Amount (Catheter) 1999 650 / 650 Indwelling Urethral Catheter 1999 650 / 650 Gastric Drainage Orogastric Tube Other: Date of Last Bowel Movement 09/24/17 09/24/17 09/24/17 # Incontinent Bowel Movements 0 Narrative: Awake alert oriented 1-2. Recognizes his very anxious wondering about his prognosis does appear to have some mild compressive aphasia however looks well extraocular movements intact visual bolaños full no facial asymmetry tongue midline able to raise all 4 extremity to gravity gait not assessed secondary to fall risk - Constitutional no acute distress - Routine HEENT Exam Head: Present: normocephalic, atraumatic Eye: Present: EOMI - Routine Neck Exam Present: supple, full ROM - Urinary Catheter Management Indwelling Urethral Catheter Cath placed during this visit: yes Reason for continuing: Hourly intake/output Insertion date: 09/25/17 Review/Management - Diagnosis (1) Acute ischemic stroke Code(s): I63.9 - Cerebral infarction, unspecified Status: Acute Current Visit: Yes (2) Acute ischemic left middle cerebral artery (MCA) stroke Code(s): I63.512 - Cerebral infarction due to unspecified occlusion or stenosis of left middle cerebral artery Status: Acute Current Visit: Yes (3) Broca's aphasia Code(s): R47.01 - Aphasia Status: Acute Current Visit: Yes (4) Acute respiratory failure Code(s): J96.00 - Acute respiratory failure, unspecified whether with hypoxia or hypercapnia Status: Acute Current Visit: Yes - Review/Management Plan: rt mca stroke; patient is left-handed s/p iv tpa etiology? Some history of patient's mother having a stroke and a PFO; thus cardiac etiology is high on the list MRI brain scan reviewed with patient and his spouse recs Start aspirin Transesophageal echocardiogram, loop recorder per cardiology scheduled for tomorrow Okay for fifth floor with telemetry Hematology consultation pending Low-dose Xanax as needed for anxiety follow exam appreciate CCM and nursing staff
--- NOTE | 2017-09-27 09:59 | P.PNCC ---
Subjective Subjective Remarks/Hospital Course: The patient is a 42-year-old -[place] male who presents to the emergency department via private vehicle for probable for stroke. Apparently patient's ex- was having a discussion with the patient on the phone at 9:07 AM when suddenly he developed garbled and incoherent speech. She went over to his pace and noticed that he had a change of personality, was aggressive with expressive and receptive aphasia. Patient was brought to the ED as stroke alert. In the ED patient was slightly confused and aggressive with expressive, and receptive aphasia. Ed attending discussed with Dr. Neff, nad patient immediately went for. CT/CTA of the head. There was no hemorrhage and patient received systemic TPA per protocol. Due to increasing agitation and to facilitate further imaging studies and for possible interventional radiology intervention patient was intubated and placed on mechanical ventilation. 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 Postintubation patient was taken to the IR for possible clot extraction, however it however with angiogram clot appears to have resolved after TPA. I evaluated the patient in the ICU. He is currently intubated sedated and neuromuscularly paralyzed for ventilator synchrony and to facilitate angiogram. Neuro exam is limited due to neuromuscular paralysis however pupils are equal and reactive SUBJ 09/26: Patient remains intubated and heavily sedated for patient safety. Continue vent support and sedation until imaging studies including CT head, MRI/ MRA completed. 2D echo did not show a source of emboli. Need bubble study. gives history of mother having ?PFO. Moves all extremities when sedation is lightened. Currently requiring Levophed and dopamine to keep SBP above 140 09/27: Patient was extubated yesterday still has some word finding difficulty but able to talk in full sentences. Also has some receptive aphasia. Evaluation requested. Start aspirin 325 mg daily, continue statin. Cardiology consult reviewed, plan on further workup for cardioembolic disease including PE , bubble study, loop recorder Objective Vital Signs / I&O: Vital Signs 09/26/17 11:42 09/26/17 11:43 09/26/17 12:00 Temperature 101 F H Pulse Rate 74 Respiratory Rate 18 14 Blood Pressure 155/80 H Pulse Oximetry 98 100 09/26/17 16:00 09/26/17 20:00 09/27/17 00:00 Temperature 99.5 F 99.4 F Pulse Rate 90 88 86 Respiratory Rate 29 H 20 19 Blood Pressure 142/73 H 140/63 119/86 Pulse Oximetry 100 98 09/27/17 04:00 09/27/17 07:44 09/27/17 08:00 Temperature 98.3 F 99.1 F Pulse Rate 84 94 H Respiratory Rate 25 H 24 Blood Pressure 151/59 H 172/67 H Pulse Oximetry 100 100 Intake & Output 09/26/17 09/27/17 09/27/17 18:59 06:59 18:59 Intake Total 1250 / 1250 1000 / 1000 Output Total 2009 650 / 650 Balance -760 / -760 350 / 350 Weight 113.4 kg 114.5 kg Intake: IV 1000 / 1000 1000 / 1000 NS Inj 1,000 ML @ 70 mls/hr IV. 1000 / 1000 1000 / 1000 CONT .[id number] [facility] Rx#:[id number] Other 250 / 250 Output: Urine Amount (Catheter) 1999 650 / 650 Indwelling Urethral Catheter 1999 650 / 650 Gastric Drainage Orogastric Tube Other: Date of Last Bowel Movement 09/24/17 09/24/17 09/24/17 # Incontinent Bowel Movements 0 Result Diagrams: 09/26/17 05:20 09/26/17 05:20 Objective Remarks: GENERAL: Patient currently sitting up in chair very pleasant SKIN: Warm/dry. HEAD: Atraumatic. Normocephalic. EYES: Pupils equal and round, 4 mm bilateral and reactive. ENT: No nasal bleeding or discharge. NECK: Trachea midline. No JVD. CARDIOVASCULAR: Regular rate and rhythm. No murmur appreciated. RESPIRATORY: No accessory muscle use. Clear to auscultation GASTROINTESTINAL: Abdomen soft, nondistended. MUSCULOSKELETAL: No obvious deformities. NEUROLOGICAL: Patient is alert awake sitting up in chair. He is able to state his name but has some receptive aphasia and expressive aphasia. Able to talk in full sentences. Strength appears equal bilateral Assessment and Plan - Problem List (1) Acute ischemic left middle cerebral artery (MCA) stroke Code(s): I63.512 - Cerebral infarction due to unspecified occlusion or stenosis of left middle cerebral artery Status: Acute (2) Broca's aphasia Code(s): R47.01 - Aphasia Status: Acute (3) Acute respiratory failure Code(s): J96.00 - Acute respiratory failure, unspecified whether with hypoxia or hypercapnia Status: Acute - Assessment and Plan Plan: NEURO: Acute right MCA stroke/Embolus to the Broca's Expressive and receptive aphasia -Status post IV TPA, follow post TPA protocol -Start aspirin today. Continue Lipitor at 40 mg daily -F/U lipid profile, TSH, B12, 2D echo -CT angiogram of the neck did not show any hemodynamically significant occlusion -MRI showed right temporal lobe infarct, minimal ischemic changes in the left temporal lobe -CT of brain showed embolus to the Broca's area -PT OT speech RESP: Acute respiratory failure-resolved -Extubated 09/26, tolerating well -DuoNeb every 6 hours scheduled and as needed -Aggressive pulmonary toilet CV: Probable mitral valve prolapse Hypertension from sedation -2d echo EF-50-55%. Mild concentric left ventricular hypertrophy. Possible mild anterior leaflet prolapse, Mild mitral valve regurgitation. -No atrial level shunt is demonstrated by color flow Doppler interrogation, need bubble study -Cardiology consult appreciated, ERIN, bubble study, loop recorder -Target systolic blood pressure less than 185/105 -Use labetalol as needed -Lipitor 40 mg daily, aspirin started today GI: Obesity -Diet per speech recommendation : -Monitor renal function closely. Ruano catheter. ID: -Watch closely for infection, no antibiotics indicated at this time HEME: -Monitor CBC, coags, fibrinogen -Post TPA orders ENDO: -Electrolyte replacement per protocol PROPH: -Bilateral lower extremity SCDs. IV Famotidine. Lovenox for DVT prophylaxis LINES: -Utilize peripheral IVs, central line if needed Level 3 Consult hospitalist to assume care in a.m. Transfer to [facility] [place] with telemetry
[2017-09-27] MEDS: Enoxaparin Inj 40 MG/0.4 ML Syringe SQ SCH (10:25)
[2017-09-27] MEDS ORDERED: ALPRAZolam 0.25 MG Tablet PO PRN (19:04)
--- NOTE | 2017-09-27 19:19 | P.PNCA ---
Subjective Interval history: No acute event, improving. Physical Exam Vital signs: Vital Signs 09/26/17 20:00 09/27/17 00:00 09/27/17 04:00 Temperature 99.4 F 98.3 F Pulse Rate 88 86 84 Respiratory Rate 20 19 25 H Blood Pressure 140/63 119/86 151/59 H Pulse Oximetry 98 09/27/17 07:44 09/27/17 08:00 09/27/17 09:00 Temperature 99.1 F Pulse Rate 94 H 90 Respiratory Rate 24 Blood Pressure 172/67 H Pulse Oximetry 100 100 09/27/17 12:00 09/27/17 13:30 09/27/17 16:00 Temperature 98.1 F 97.8 F 98.5 F Pulse Rate 79 85 80 Respiratory Rate 25 H 18 17 Blood Pressure 120/68 137/73 129/80 Pulse Oximetry 97 99 98 Intake & Output 09/27/17 09/27/17 09/28/17 06:59 18:59 06:59 Intake Total 1000 / 1000 240 / 240 Output Total 650 / 650 Balance 350 / 350 240 / 240 Weight 114.5 kg Intake: IV 1000 / 1000 NS Inj 1,000 ML @ 70 mls/hr IV. 1000 / 1000 CONT .[id number] [facility] Rx#:[id number] Oral 240 / 240 Output: Urine Amount (Catheter) 650 / 650 Indwelling Urethral Catheter 650 / 650 Other: # Voids 1 Date of Last Bowel Movement 09/24/17 09/24/17 # Bowel Movements 0 - Constitutional no acute distress - Routine HEENT Exam Head: Present: normocephalic, atraumatic - Routine Neck Exam Present: supple, full ROM, JVD - Routine Respiratory Exam Present: CTA bilaterally - Routine Cardiovascular Exam Present: RRR, S1, S2, murmur. Absent: gallop, rubs - Routine Abdominal Exam Present: soft, normoactive bowel sounds - Routine Skin Exam Present: intact - Routine Neurological Exam Present: alert, oriented X3 - Detailed Neurological Exam: Coma Scale Eye Opening: Spontaneous - Urinary Catheter Management Indwelling Urethral Catheter Cath placed during this visit: yes Reason for continuing: Hourly intake/output Insertion date: 09/25/17 Assessment and Plan - Assessment (1) Acute ischemic left middle cerebral artery (MCA) stroke Code(s): I63.512 - Cerebral infarction due to unspecified occlusion or stenosis of left middle cerebral artery Status: Acute (2) Broca's aphasia Code(s): R47.01 - Aphasia Status: Acute (3) Acute respiratory failure Code(s): J96.00 - Acute respiratory failure, unspecified whether with hypoxia or hypercapnia Status: Acute - Plan 42 years old man with no past medical history developed acute left MCA stroke Echocardiogram showed no significant abnormality. currently under good management of neurologist. Should be on aspirin, statin. neurology recommend ERIN to rule out possible PFO, intracardiac thrombus and possible loop recorder implantation to rule out atrial fibrillation. Will make arrangement on Thursday. I am covering for [facility] cardiology this weakened.
[2017-09-28] MEDS: Oral Hygiene Kit OROPHARYNG SCH ×4 (01:02→10:13)
[2017-09-28] MEDS: Aspirin 325 MG Tablet PO SCH ×2 (01:02→10:11)
[2017-09-28] MEDS: Acetaminophen 325 MG Tablet PO PRN (07:28)
--- NOTE | 2017-09-28 07:55 | P.PNCA ---
<Ted Li - Last Filed: 09/28/17 07:50> Subjective Interval history: Anxious to leave, ambulating the halls. Not wearing Holter monitor. Physical Exam Vital signs: Vital Signs 09/27/17 08:00 09/27/17 09:00 09/27/17 12:00 Temperature 99.1 F 98.1 F Pulse Rate 94 H 90 79 Respiratory Rate 24 25 H Blood Pressure 172/67 H 120/68 Pulse Oximetry 100 97 09/27/17 13:30 09/27/17 16:00 09/27/17 20:00 Temperature 97.8 F 98.5 F 98.4 F Pulse Rate 85 80 86 Respiratory Rate 18 17 18 Blood Pressure 137/73 129/80 116/56 L Pulse Oximetry 99 98 97 09/27/17 22:39 09/28/17 00:00 09/28/17 04:00 Temperature 98.5 F 98.2 F Pulse Rate 77 74 Respiratory Rate 16 17 Blood Pressure 127/60 128/74 Pulse Oximetry 100 98 97 Intake & Output 09/27/17 09/28/17 09/28/17 18:59 06:59 18:59 Intake Total 240 / 240 Balance 240 / 240 Weight 253 lb 1.451 oz Intake: Oral 240 / 240 Other: # Voids 1 Date of Last Bowel Movement 09/24/17 # Bowel Movements 0 Narrative: GENERAL: Well-developed well-nourished. In no acute distress. NECK: No carotid bruits. No JVD. CARDIOVASCULAR: Regular rate and rhythm. No murmur appreciated. RESPIRATORY: No accessory muscle use. Clear to auscultation. Breath sounds equal bilaterally. MUSCULOSKELETAL: No clubbing or cyanosis. No edema. NEUROLOGICAL: Awake and alert. Normal speech. - Urinary Catheter Management Indwelling Urethral Catheter Cath placed during this visit: yes Reason for continuing: Hourly intake/output Insertion date: 09/25/17 Assessment and Plan - Plan 42 years old man with no past medical history developed acute left MCA stroke Echocardiogram showed no significant abnormality. EKG with NSR. Continue on aspirin, statin. Patient is anxious to leave, but is agreeable at this time for ERIN today, keep n.p.o. Telemetry monitoring for now. We will plan for event monitor as outpatient. Discussed Condition With: Patient, Dr. Lozano, Dr. Neff <Hever Lozano - Last Filed: 09/28/17 09:26> Physical Exam Vital signs: Vital Signs 09/27/17 12:00 09/27/17 13:30 09/27/17 16:00 Temperature 98.1 F 97.8 F 98.5 F Pulse Rate 79 85 80 Respiratory Rate 25 H 18 17 Blood Pressure 120/68 137/73 129/80 Pulse Oximetry 97 99 98 09/27/17 20:00 09/27/17 22:39 09/28/17 00:00 Temperature 98.4 F 98.5 F Pulse Rate 86 77 Respiratory Rate 18 16 Blood Pressure 116/56 L 127/60 Pulse Oximetry 97 100 98 09/28/17 04:00 09/28/17 08:05 Temperature 98.2 F 98.2 F Pulse Rate 74 88 Respiratory Rate 17 18 Blood Pressure 128/74 166/96 H Pulse Oximetry 97 98 Intake & Output 09/27/17 09/28/17 09/28/17 18:59 06:59 18:59 Intake Total 240 / 240 Balance 240 / 240 Weight 114.8 kg Intake: Oral 240 / 240 Other: # Voids 1 Date of Last Bowel Movement 09/24/17 # Bowel Movements 0 - Urinary Catheter Management Indwelling Urethral Catheter Cath placed during this visit: no Assessment and Plan - Attending Attestation imaging confirmed CVA ERIN today for suspected cardioembolic etiology plan for 30 day outpatient event monitor, if negative, will implant Loop recorder med mgt per neurology dc planning
--- NOTE | 2017-09-28 08:07 | P.PNNEU ---
Subjective Subjective Comments: No acute events reported No headache No chest pain No dyspnea Active Medications: Active Medications Acetaminophen (Tylenol) 650 mg PO Q6H PRN PRN Reason: PAIN 1-10 AND/OR FEVER >101F Last Admin: 09/28/17 07:28 Dose: 650 mg Al Hydroxide/Mg Hydroxide (Milk Of Magnesia Liq) 30 ml PO Q12H PRN PRN Reason: Mild Constipation Albuterol (Albuterol Neb (Prn)) 2.5 mg NEB Q2HR NEB PRN PRN Reason: SHORTNESS OF BREATH/WHEEZING Alprazolam (Xanax) 0.25 mg PO Q4H PRN PRN Reason: anxiety Last Admin: 09/27/17 19:47 Dose: 0.25 mg Aspirin (Aspirin) 325 mg PO DAILY [facility] Last Admin: 09/28/17 01:02 Dose: Not Given Atorvastatin Calcium (Lipitor) 40 mg PO HS [facility] Last Admin: 09/27/17 20:11 Dose: 40 mg Bisacodyl (Dulcolax Supp) 10 mg RECTAL DAILY PRN PRN Reason: SEVERE CONSITIPATION Chlorhexidine Gluconate (Chlorhexidine 2% Cloth) 3 pack TOPICAL DAILY@0400 [facility] Stop: 10/01/17 03:59 Last Admin: 09/27/17 05:18 Dose: 3 pack Chlorhexidine Gluconate (Chlorhexidine 2% Cloth) 3 pack TOPICAL DAILY@0400 PRN PRN Reason: Extra cloth needed Stop: 10/01/17 03:59 Chlorhexidine Gluconate (Peridex 0.12% Oral Kit) 15 ml OROPHARYNG BID@0800, 2000 [facility] Last Admin: 09/27/17 20:13 Dose: Not Given Enoxaparin Sodium (Lovenox Inj) 40 mg SQ Q24H [facility] Last Admin: 09/27/17 10:25 Dose: 40 mg Famotidine (Pepcid Pf Inj) 20 mg IV.PUSH Q12HR [facility] Last Admin: 09/27/17 20:12 Dose: Not Given Sodium Chloride (Ns Inj) 1,000 mls @ 70 mls/hr IV.CONT .[id number] [facility] Last Admin: 09/27/17 06:17 Dose: 70 mls/hr Nicardipine HCl 25 mg/ Sodium (Chloride) 250 mls @ 50 mls/hr IV.CONT TITRATE PRN; Protocol PRN Reason: Per Protocol Lactulose (Lactulose Liq) 30 ml PO DAILY PRN PRN Reason: SEVERE CONSITIPATION Ondansetron HCl (Zofran Odt) 4 mg PO Q6H PRN PRN Reason: NAUSEA OR VOMITING Senna/Docusate Sodium (Radha-Colace) 1 tab PO BID [facility] Last Admin: 09/27/17 20:11 Dose: Not Given Sennosides (Senokot) 17.2 mg PO Q12H PRN PRN Reason: Moderate Constipation Sodium Chloride (Ns Flush) 2 ml IV.FLUSH BID [facility] Last Admin: 09/28/17 01:03 Dose: 2 ml Sodium Chloride (Ns Flush) 2 ml IV.FLUSH UNSCH PRN PRN Reason: FLUSH AFTER USING IV ACCESS Terbutaline Sulfate (Brethine Inj) 1 mg SQ UNSCH PRN PRN Reason: For Extravasation Allergies/Adverse Reactions: Allergies Allergy/AdvReac Type Severity Reaction Status Date / Time No Known Allergies Allergy Unverified 09/25/17 09:57 Physical Exam Vital signs: Vital Signs 09/27/17 09:00 09/27/17 12:00 09/27/17 13:30 Temperature 98.1 F 97.8 F Pulse Rate 90 79 85 Respiratory Rate 25 H 18 Blood Pressure 120/68 137/73 Pulse Oximetry 97 99 09/27/17 16:00 09/27/17 20:00 09/27/17 22:39 Temperature 98.5 F 98.4 F Pulse Rate 80 86 Respiratory Rate 17 18 Blood Pressure 129/80 116/56 L Pulse Oximetry 98 97 100 09/28/17 00:00 09/28/17 04:00 Temperature 98.5 F 98.2 F Pulse Rate 77 74 Respiratory Rate 16 17 Blood Pressure 127/60 128/74 Pulse Oximetry 98 97 Intake & Output 09/27/17 09/28/17 09/28/17 18:59 06:59 18:59 Intake Total 240 / 240 Balance 240 / 240 Weight 114.8 kg Intake: Oral 240 / 240 Other: # Voids 1 Date of Last Bowel Movement 09/24/17 # Bowel Movements 0 Narrative: GENERAL: Well-developed well-nourished. In no acute distress. NECK: No carotid bruits. CARDIOVASCULAR: Regular rate and rhythm. RESPIRATORY: Clear to auscultation MUSCULOSKELETAL: No clubbing or cyanosis. No edema. NEUROLOGICAL: Awake and alert. More fluent articulate appears to be understanding better extraocular was intact no facial asymmetry no pronator drift gait stable Romberg negative - Constitutional no acute distress - Routine HEENT Exam Head: Present: normocephalic - Urinary Catheter Management Indwelling Urethral Catheter Cath placed during this visit: yes Reason for continuing: Hourly intake/output Insertion date: 09/25/17 Review/Management - Diagnosis (1) Acute ischemic stroke Code(s): I63.9 - Cerebral infarction, unspecified Status: Acute Current Visit: Yes (2) Acute ischemic left middle cerebral artery (MCA) stroke Code(s): I63.512 - Cerebral infarction due to unspecified occlusion or stenosis of left middle cerebral artery Status: Acute Current Visit: Yes (3) Broca's aphasia Code(s): R47.01 - Aphasia Status: Acute Current Visit: Yes (4) Acute respiratory failure Code(s): J96.00 - Acute respiratory failure, unspecified whether with hypoxia or hypercapnia Status: Acute Current Visit: Yes - Review/Management Plan: rt mca stroke; patient is left-handed s/p iv tpa etiology? Some history of patient's mother having a stroke and a PFO; thus cardiac etiology is high on the list MRI brain scan reviewed with patient and his spouse recs Neurologically stable Transesophageal echocardiogram, loop recorder per cardiology scheduled for today Okay for fifth floor with telemetry Hematology consultation Low-dose Xanax as needed for anxiety follow exam Discharge planning after cardiology workup completed can follow-up with us in the outpatient setting Should not drive may need further cognitive testing in the outpatient setting as well as evaluation of sleep apnea at our office
--- NOTE | 2017-09-28 09:41 | P.PNIM ---
Subjective Interval history: pt eager for dc home after the JORDEN Physical Exam Vital signs: Vital Signs 09/27/17 12:00 09/27/17 13:30 09/27/17 16:00 Temperature 98.1 F 97.8 F 98.5 F Pulse Rate 79 85 80 Respiratory Rate 25 H 18 17 Blood Pressure 120/68 137/73 129/80 Pulse Oximetry 97 99 98 09/27/17 20:00 09/27/17 22:39 09/28/17 00:00 Temperature 98.4 F 98.5 F Pulse Rate 86 77 Respiratory Rate 18 16 Blood Pressure 116/56 L 127/60 Pulse Oximetry 97 100 98 09/28/17 04:00 09/28/17 08:05 Temperature 98.2 F 98.2 F Pulse Rate 74 88 Respiratory Rate 17 18 Blood Pressure 128/74 166/96 H Pulse Oximetry 97 98 Intake & Output 09/27/17 09/28/17 09/28/17 18:59 06:59 18:59 Intake Total 240 / 240 Balance 240 / 240 Weight 114.8 kg Intake: Oral 240 / 240 Other: # Voids 1 Date of Last Bowel Movement 09/24/17 # Bowel Movements 0 some expressive aphasia heart reg lung cta abd s/nt ext no edema - Urinary Catheter Management Indwelling Urethral Catheter Cath placed during this visit: yes Reason for continuing: Hourly intake/output Insertion date: 09/25/17 Results - Labs CBC & Chem 7: 09/26/17 05:20 09/26/17 05:20 Assessment and Plan - Assessment (1) Acute ischemic stroke Code(s): I63.9 - Cerebral infarction, unspecified Status: Acute Plan: 1. acute cva. embolic left mca emboli noted. s/p tpa also right mca infarct discussed with neuro. asa and statin for now. no driving. no lifting weights as pt requested [facility] st discussed with cardiology. jorden today. 30day event monitor. if evidence for thrombus or pfo or afib then anticoagulation discussed will need to f/u for results of his hypercoagulation panel. pt insisting on dc today after jorden. (2) Acute ischemic left middle cerebral artery (MCA) stroke Code(s): I63.512 - Cerebral infarction due to unspecified occlusion or stenosis of left middle cerebral artery Status: Acute (3) Broca's aphasia Code(s): R47.01 - Aphasia Status: Acute
--- NOTE | 2017-09-28 09:49 | P.DCO ---
- Speech Therapy Order: To improve: Speech and communication skills, Cognitive skills - Home Health Nursing Order: Medical education, Signs/symptoms of disease process, Nursing assessment with vital signs - Certification I have seen patient Steven Kirby on 09/28/17. My clinical findings support the need for the requested home health care services because: Impaired cognition/judgement I certify that my clinical findings support that this patient is homebound because: Impaired cognitive ability/safety
[2017-09-28] MEDS: Famotidine PF Inj 20 MG/2 ML Vial IV.PUSH SCH (10:12)
[2017-09-28] MEDS: Senna/Docusate Sodium 8.6/50 MG Tablet PO SCH (10:12)
[2017-09-28] MEDS: Enoxaparin Inj 40 MG/0.4 ML Syringe SQ SCH (10:12)
[2017-09-28] MEDS: Chlorhexidine 0.12% Oral Kit 15 ML UDC OROPHARYNG SCH (10:13)
[2017-09-28] MEDS: Chlorhexidine Gluconate 2% 1 Pack (2 Cloths) TOPICAL SCH (10:13)
--- NOTE | 2017-09-28 12:13 | ECHRPT ---
Indication: CVA/TIA CONCLUSIONS Normal left ventricular size and wall thickness. The left ventricular systolic function is normal wi th an estimated ejection fraction in the range of 60-65%. Left ventricular diastolic function parameters a re normal. Normal left atrial appendage size with no evidence of thrombus formation. Normal atrial septal thickness. No atrial level shunt is demonstrated by color flow Doppler or agitated saline imaging. Mild thickening of the mitral valve leaflets. Nwueh-[id number] mitral valve regurgitation. No mitral valve stenosis. Anterior mitral valve leaflet prolapse. There is trace tricuspid valve regurgitation. Pulmonary arterial systolic pressure could not be daniel mated due to an insufficient tricuspid valve regurgitation doppler jet for measurement. No tricuspid valve casimiro nosis. BP: / HR: Rhythm: Technical Quality: Medications Complications Proc. Components The patient was brought to the diagnostic imaging area in a fasting state after o btaining an informed consent. The patient was premedicated with IV Versed and IV Fentanyl. The wall attendant ior pharynx was sprayed with Cetacaine spray and the patient was administered viscous Xylocaine 2 %. The ERIN probe was passed into the posterior pharynx , mid-esophagus, distal esophagus, and gastric fundus. ERIN was performed at multiple levels. The patient tolerated the procedure well and there were no complications. The patient was transferred to the floor in satisfactory condition.. FINDINGS LEFT VENTRICLE Normal left ventricular size and wall thickness. The left ventricular systolic function is normal wi th an estimated ejection fraction in the range of 60-65%. Left ventricular diastolic function parameters a re normal. RIGHT VENTRICLE Normal right ventricular size and systolic function. LEFT ATRIUM The left atrial size is normal. RIGHT ATRIUM The right atrial size is normal. ATRIAL APPENDAGES Normal left atrial appendage size with no evidence of thrombus formation. ATRIAL SEPTUM Normal atrial septal thickness. No atrial level shunt is demonstrated by color flow Doppler or agitated saline imaging. AORTA The aortic root and proximal ascending aorta are normal in size on limited imaging. MITRAL VALVE Mild thickening of the mitral valve leaflets. [id number] mitral valve regurgitation. No mitral valve stenosis. Anterior mitral valve leaflet prolapse. AORTIC VALVE Trileaflet aortic valve. No aortic valve stenosis or regurgitation. TRICUSPID VALVE There is trace tricuspid valve regurgitation. Pulmonary arterial systolic pressure could not be daniel mated due to an insufficient tricuspid valve regurgitation doppler jet for measurement. No tricuspid valve casimiro nosis. VESSELS The inferior vena cava is normal in size. PULMONARY VALVE The pulmonary valve is not well visualized. PERICADIUM No pericardial effusion. Hever Minor MD, FACC (Electronically Signed) Final Date:28 September 2017 12:12
[2017-09-28 12:41] VITALS: BP 137/81; PULSE 53; RESP 22; TEMP 98.1; O2SAT 100
[2017-10-02 09:42] LABS: Factor V Leiden Mutation Negative (Negative)
--- NOTE | 2017-10-03 16:22 | P.DS ---
Date of admission: 09/25/17 10:55 Primary care physician: Kelsie Victoria MD Anticipated date of discharge: 09/28/17 Brief History from admission: The patient is a 42-year-old -[place] male who presents to the emergency department via private vehicle probable for stroke. Apparently patient's ex- was having a discussion with the patient on the phone at 9:07 AM when suddenly he developed garbled and incoherent speech. She went over to his pace and noticed that he had a change of personality, was aggressive with expressive and receptive aphasia. Patient was brought to the ED as stroke alert. In the ED patient was slightly confused and aggressive with expressive, and receptive aphasia. Ed attending discussed with Dr. Neff, brian patient immediately went for. CT/CTA of the head. There was no hemorrhage and patient received systemic TPA per protocol. Due to increasing agitation and to facilitate further imaging studies and for possible interventional radiology intervention patient was intubated and placed on mechanical ventilation. 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 Postintubation patient was taken to the IR for possible clot extraction, however it however with angiogram clot appears to have resolved after TPA. I evaluated the patient in the ICU. He is currently intubated sedated and neuromuscularly paralyzed for ventilator synchrony and to facilitate angiogram. Neuro exam is limited due to neuromuscular paralysis however pupils are equal and reactive DS: Diagnosis - Discharge Diagnosis (1) Acute ischemic stroke Status: Acute (2) Broca's aphasia Status: Acute (3) Acute ischemic left middle cerebral artery (MCA) stroke Status: Acute DS: Medications - Discharge Medications Prescriptions: aspirin 325 mg PO DAILY 90 Days #90 tab atorvastatin 40 mg PO HS 30 Days #30 tab DS: Summary Hospital Course: - Assessment (1) Acute ischemic stroke Code(s): I63.9 - Cerebral infarction, unspecified Status: Acute Plan: 1. acute cva. embolic left mca emboli noted. s/p tpa also right mca infarct s/p tpa on admission discussed with neuro. asa and statin for now. no driving. no lifting weights as pt requested [facility] st discussed with cardiology. jorden today negative for pfo/thrombus. 30day event monitor arrangement at [facility]. will need to f/u for results of his hypercoagulation panel. discussed with neuro and pcp. pt insisting on dc today after jorden. (2) Acute ischemic left middle cerebral artery (MCA) stroke Code(s): I63.512 - Cerebral infarction due to unspecified occlusion or stenosis of left middle cerebral artery Status: Acute (3) Broca's aphasia Code(s): R47.01 - Time Spent with Patient Total time spent providing and/or coordinating discharge services: - Quality: Stroke Last date observed well: 09/25/17 Last time observed well: 09:00 - Quality: VTE Deep Vein Thrombosis/Pulmonary Embolism Present on Admission: No Exam Vital signs: mild expressive aphasia on dc heart reg lung cta abd s/nt ext no edema Results Procedures completed during hospitalization: see above - Impressions ITS Impressions Cerebral Angiography 09/25/17 00:00 CONCLUSION: Unremarkable cerebral arteriography with no evidence of visible vessel occlusion to be targeted for catheter directed stroke therapy Head CTA 09/25/17 09:58 CONCLUSION: 1. 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 2. No aneurysmal disease. 3. Results were discussed with Dr. Meadows in the ED at the time of this dictation. Neck CTA 09/25/17 09:58 CONCLUSION: Cervical and arch vessels are widely patent with no significant atherosclerotic plaquing. Head MRI 09/26/17 00:00 CONCLUSION: 1. There is an infarct along the right temporal lobe. 2. Minimal changes are seen in the left temporal lobe suggesting some minimal ischemia as well although may be artifactual. Head CT 09/26/17 10:25 CONCLUSION: 1. No acute hemorrhage. 2. Fluid in the paranasal sinuses. . Head MRA 09/26/17 18:51 CONCLUSION: 1. No large vessel stenosis or aneurysm. Discharge Plan - Discharge Disposition Patient Disposition: Disch W/Home Health Service - Discharge Condition Condition: Stable - Discharge Order Discharge Orders: Discharge Order (Routine); Ordered 09/28/17 Ordered By: Turner Jaimes Cardiology Clear for Discharge (Routine); Ordered 09/28/17 Ordered By: Hever Loazno - Discharge Details Anticipated Discharge Date: 09/28/17 - Physicians Team Primary Care Provider: Kelsie Victoria Attending Provider: Venu Cooper Other Providers: Quinten Neff MD ; Wing April Day MD ; Oskar Lord MD ; Bennett Dallas DO ; [employer],
== END 2017-09-28 13:12 | disposition home health service (06) ==
LOC: NEPE 09:52 → NEDA 10:55 → N03 12:13 → N05 09-27 12:38
PROVIDERS: ADMIT Internal Medicine; ATTEND Internal Medicine